=== PATIENT | female | born 1990 | race Caucasian/White ===

== ENCOUNTER 2016-12-25 11:20 | Emergency (ER) | payer OTHER ==
[~2016-12-25] VITALS: Ht 165.1 cm; Wt 118.2 kg
[~2016-12-25 11:20] MED LIST: BENT20TA PO; BUSP10TA PO; CYCL1TAB29 PO; NAPR500T PO; TRIL150T PO; VENL37.5 PO
[2016-12-25 11:21] VITALS: BP 131/87; PULSE 103; RESP 15; TEMP 98.2; O2SAT 98
--- NOTE | 2016-12-25 11:55 | PD ---
HPI Chief Complaint: Injury Time Seen by Provider: 11:55 Travel History International Travel<30 days: No Contact w/Intl Traveler<30days: No Traveled to known affect area: No History of Present Illness HPI 36-year-old left-hand dominant female with history of hypertension and chronic back pain presents to the ED via EMS for evaluation of 6/10 right hand pain and 6/10 right knee pain, [facility] The patient states that she was walking, hit a puddle of water and fell onto her hands and knees. She has not been ambulatory since the accident. On presentation she complains of numbness and pain in the fifth digit of the right hand, as well as the inability to straighten the fifth finger. She also complains of pain in the right knee, worse with certain movements. She denies previous trauma or injury to either the hand over the knee. Treat with ice by the paramedics on scene. PFSH Past Medical History Hx Anticoagulant Therapy: No Depression: Yes Cardiovascular Problems: Yes (HTN; CHEST PAIN AT TIMES) Chemotherapy: No Cerebrovascular Accident: No Diabetes: No Diminished Hearing: No Hypertension: Yes Musculoskeletal: Yes (CHRONIC BACK PAIN) Respiratory: No Immunizations Current: No ?: Not Tubal Ligation: Yes Past Surgical History Section: Yes Hysterectomy: No Tonsillectomy: Yes (ADNOIDS) Social History Alcohol Use: No Tobacco Use: No Substance Use: No Allergies-Medications (Allergen,Severity, Reaction): Coded Allergies: Abilify (Verified Allergy, Severe, CHEST PAIN, 10/16/16) Pertussis Vaccine (Verified Allergy, Unknown, CHILD, 10/16/16) Uncoded Allergies: WHOOPING COUGH VACCINE (Allergy, Severe, UNK, 08/25/15) Reported Meds & Prescriptions Reported Meds & Active Scripts Active Naproxen 500 Mg Tab 500 Mg PO BID Flexeril (Cyclobenzaprine HCl) 10 Mg Tab 10 Mg PO TID PRN Naproxen 500 Mg Tab 500 Mg PO BID PRN Bentyl (Dicyclomine HCl) 20 Mg Tab 20 Mg PO TID Reported Buspirone (Buspirone HCl) 10 Mg Tab 10 Mg PO BID Trileptal (Oxcarbazepine) 150 Mg Tab 150 Mg PO DAILY Effexor (Venlafaxine HCl) 37.5 Mg Tab 37.5 Mg PO Q12H Review of Systems Except as stated in HPI: all other systems reviewed are Neg Physical Exam Narrative GENERAL: Well-nourished, well-developed obese white female in no acute distress. SKIN: Warm and dry. HEAD: Normocephalic. EYES: No scleral icterus. No injection or drainage. NECK: Supple, trachea midline. No JVD or lymphadenopathy. CARDIOVASCULAR: Regular rate and rhythm without murmurs, gallops, or rubs. 2+ DP and radial pulses bilaterally. RESPIRATORY: Breath sounds clear and equal bilaterally. No accessory muscle use. GASTROINTESTINAL: Abdomen soft, non-tender, nondistended. Active bowel sounds. MUSCULOSKELETAL: No cyanosis, or edema. Right upper extremity: No tenderness to palpation of the forearm or wrist. No snuffbox tenderness. Tender to palpation of the MP joint of the fifth digit. Patient is able to weakly flex and extend the finger. Weak finger to thumb opposition of digits 2 through 5. Sensation intact to light touch distally. Cap refill less than 2 seconds. Right lower extremity: Tender to palpation of the patella. No patellar balloting. No tenderness to palpation of the joint lines. Patient is able to flex and extend the knee. Varus valgus stress testing negative. Anterior posterior stress testing negative. Sensation intact to light touch distally. BACK: Nontender without obvious deformity. No CVA tenderness. Data Data Last Documented VS Vital Signs Date Time Temp Pulse Resp B/P Pulse Ox O2 Delivery O2 Flow Rate FiO2 12/25/16 11:21 98.2 103 15 131/87 98 Orders Hand, Complete ([id number]) (12/25/16 12:00) Knee, Complete (4vws) (12/25/16 12:00) Ice/Cold Pack (12/25/16 12:00) Ibuprofen (Motrin) (12/25/16 12:15) Splint Or Brace Apply/Monitor (12/25/16 13:30) MDM Medical Decision Making Medical Screen Exam Complete: Yes Emergency Medical Condition: Yes Differential Diagnosis Fracture versus dislocation versus musculoskeletal pain versus contusion versus other Narrative Course 36-year-old [id number] female with PMH of HTN, chronic back pain presents to the ED via EMS for evaluation of 6 out of 10 right hand pain and 6 out of 10 right knee pain. Onset after falling onto her hands and knees in a puddle of water at [facility]. No ambulation since the accident. Complains of numbness, limited AROM and pain in the fifth digit of the right hand. Complains of pain in the right knee, worse with certain movements. Denies previous trauma or injury to either area. Vitals reviewed. Physical exam reveals an obese white female in no acute distress. Tender to palpation over the fifth metacarpal of the right hand. Patient is able to weakly flex and extend the fingers. Sensation intact to light touch distally. Cap refill less than 2 seconds. Right knee patellar tenderness to palpation. No patellar balloting. No limitations to range of motion. Negative varus/valgus and anterior/posterior stress testing. The patient intact to light touch distally. Ice packs were applied, 800 milligram ibuprofen administered. X-ray of the knee negative for fracture/dislocation per radiology read. X-ray of the hand reveals deformity of the fifth metacarpal that could be chronic per radiology read. Again, patient adamantly denies previous injury to the area. Review of the record reveals no previous hand x-rays for comparison. Ulnar gutter splint was applied by the clinical orthoptist. The patient was provided with pain medications, instructed to follow-up with Dr. Arias, on-call hand surgeon. The patient was observed to walk with a normal gait on discharge. She indicated understanding of the discharge instructions, is amenable to the plan of care. She is stable and discharged home. Diagnosis Primary Impression: Closed fracture of fifth metacarpal bone of right hand Qualified Code: S62.306A - Closed fracture of fifth metacarpal bone of right hand, unspecified fracture morphology, initial encounter Referrals: Fior Arias MD Patient Instructions: General Instructions, Hand Fracture (ED) Additional Instructions: Keep the splint on until seen by the hand surgeon. Keep the arm elevated to reduce pain and swelling. Naproxen as prescribed, as needed for pain. Ice applied for 15 minutes 2 or 3 times a day can also help to reduce pain and swelling. Follow-up with Dr. Arias, hand surgery, this week. Return to the ED for any urgent or emergent medical condition. Med/Other Pt SpecificInfo: Prescription(s) given Scripts Naproxen 500 Mg [id number] Mg PO BID #20 TAB Ref 0 Prov:Jazmyne Ramirez MD 12/25/16 Disposition: 01 DISCHARGE HOME Condition: Stable Karen Brunner Dec 25, 2016 11:55
[2016-12-25] MEDS ORDERED: IBUPROFEN 800 MG TAB PO ONE (12:15)
--- NOTE | 2016-12-25 13:07 | RADRPT ---
EXAM DATE/TIME: 12/25/2016 12:34 [facility] COMPARISON: No previous studies available for comparison. INDICATIONS : Right knee pain. MEDICAL HISTORY : None. SURGICAL HISTORY : None. ENCOUNTER: Initial ACUITY: 1 day PAIN SCORE: 6/10 LOCATION: Right knee FINDINGS: Four view examination of the right knee demonstrates no evidence of fracture or dislocation. Bony mi neralization is normal. The articular surfaces are intact. The suprapatellar soft tissues have a no rmal configuration. CONCLUSION: Negative for fracture or dislocation. Followup in 7-10 days is suggested if symptoms persist. Mendoza Tapia MD FACR on December 25, 2016 at 13:06 Board Certified Radiologist. This report was verified electronically.
--- NOTE | 2016-12-25 13:27 | RADRPT ---
EXAM DATE/TIME: 12/25/2016 12:30 [facility] COMPARISON: No previous studies available for comparison. INDICATIONS : Patient fell and complains of right 5th digit pain. MEDICAL HISTORY : None. SURGICAL HISTORY : None. ENCOUNTER: Initial ACUITY: 1 day PAIN SCORE: 6/10 LOCATION: Right medial Hand fifth digit FINDINGS: There is soft tissue swelling with deformity of the 5th metacarpal. This appears to be a chronic def ormity. Correlation is suggested. No other fractures are appreciated. CONCLUSION: Deformity of the 5th metacarpal that could be chronic. Mendoza Tapia MD FACR on December 25, 2016 at 13:04 Board Certified Radiologist. This report was verified electronically.
[2016-12-25] MEDS ORDERED: NAPR500T PO (13:56)
== END 2016-12-25 14:20 | disposition home or self-care (01) ==
LOC: NETRI 11:20
DX: S62.306A Unspecified fracture of fifth metacarpal bone, right hand, initial encounter for closed fracture (principal); F32.9 Major depressive disorder, single episode, unspecified; I10 Essential (primary) hypertension; W18.31XA Fall on same level due to stepping on an object, initial encounter; Y93.01 Activity, walking, marching and hiking; Y92.512 Supermarket, store or market as the place of occurrence of the external cause; Y99.9 Unspecified external cause status
CPT/HCPCS: 29125; 73130; 73564

== ENCOUNTER 2017-02-16 05:30 | Emergency (ER) | payer SELFPAY ==
[~2017-02-16] VITALS: Ht 165.1 cm; Wt 120.0 kg
[2017-02-16 05:36] VITALS: BP 99/76; PULSE 115; RESP 18; TEMP 100.2; O2SAT 97
--- NOTE | 2017-02-16 06:28 | PD ---
HPI Chief Complaint: Cold / Flu Symptoms Time Seen by Provider: 06:08 Travel History International Travel<30 days: No Contact w/Intl Traveler<30days: No Traveled to known affect area: No History of Present Illness HPI The patient is a 26-year-old female that complains of generalized myalgias, nausea, vomiting, sore throat with slight left intermittent ear pain for 1 day. She is unable to keep fluids down. She denies any diarrhea. She has had a low-grade fever. She states her boyfriend has the same symptoms. She has a tubal ligation and cannot be . PFSH Past Medical History Hx Anticoagulant Therapy: No Anxiety: Yes Depression: Yes Cardiovascular Problems: Yes (HTN; CHEST PAIN AT TIMES) Chemotherapy: No Cerebrovascular Accident: No Diabetes: No Diminished Hearing: No Hypertension: Yes Musculoskeletal: Yes (CHRONIC BACK PAIN) Psychiatric: Yes (BORDERLINE PERSONALITY DISORDER) Respiratory: No Immunizations Current: No Tetanus Vaccination: Unknown Influenza Vaccination: No ?: Unknown LMP: 01/20/17 Tubal Ligation: Yes Past Surgical History Section: Yes Hysterectomy: No Tonsillectomy: Yes (ADNOIDS) Social History Alcohol Use: No Tobacco Use: No Substance Use: Yes (MARIJUANA) Allergies-Medications (Allergen,Severity, Reaction): Coded Allergies: Abilify (Verified Allergy, Severe, CHEST PAIN, 02/16/17) Pertussis Vaccine (Verified Allergy, Unknown, CHILD, 02/16/17) Uncoded Allergies: WHOOPING COUGH VACCINE (Allergy, Severe, UNK, 08/25/15) Reported Meds & Prescriptions Reported Meds & Active Scripts Active Review of Systems Except as stated in HPI: all other systems reviewed are Neg Physical Exam Narrative GENERAL: The patient is alert, oriented 3 in moderate apparent distress with her nausea and abdominal discomfort. Her vital signs show temperature 100.2 with heart rate of 115 but are otherwise normal. SKIN: Focused skin assessment warm/dry. No skin rash is seen. HEAD: Atraumatic. Normocephalic. EYES: Pupils equal and round. No scleral icterus. No injection or drainage. ENT: No nasal bleeding or discharge. Mucous membranes pink and moist. The tympanic membranes are clear. The throat is slightly red without exudate or abscess. NECK: Trachea midline. No JVD. There is no meningismus present. CARDIOVASCULAR: Regular rate and rhythm. No murmur appreciated. RESPIRATORY: No accessory muscle use. Clear to auscultation. Breath sounds equal bilaterally. GASTROINTESTINAL: Abdomen soft, with minimal discomfort in the periumbilical area, nondistended. Hepatic and splenic margins not palpable. No guarding or rebound is present. MUSCULOSKELETAL: No obvious deformities. No clubbing. No cyanosis. No edema. NEUROLOGICAL: Awake and alert. No obvious cranial nerve deficits. Motor grossly within normal limits. Normal speech. PSYCHIATRIC: Appropriate mood and affect; insight and judgment normal. Data Data Last Documented VS Vital Signs Date Time Temp Pulse Resp B/P Pulse Ox O2 Delivery O2 Flow Rate FiO2 02/16/17 07:01 95 Room Air 02/16/17 05:53 20 02/16/17 05:36 100.2 115 99/76 Orders Group A Rapid Strep Screen (02/16/17 06:17) Influenzae A/B Antigen (02/16/17 06:17) Complete Blood Count With Diff (02/16/17 06:18) Comprehensive Metabolic Panel (02/16/17 06:18) Lipase (02/16/17 06:18) Urinalysis - C+S If Indicated (02/16/17 06:18) Iv Access Insert/Monitor (02/16/17 06:18) Ecg Monitoring (02/16/17 06:18) Oximetry (02/16/17 06:18) Ondansetron Inj (Zofran Inj) (02/16/17 06:30) Sodium Chloride 0.9% Flush (Ns Flush) (02/16/17 06:30) Sodium Chlor 0.9% 1000 Ml Inj (Ns 1000 M (02/16/17 06:30) Ondansetron Inj (Zofran Inj) (02/16/17 06:30) Ketorolac Inj (Toradol Inj) (02/16/17 07:15) Acetaminophen (Tylenol) (02/16/17 07:15) Labs Laboratory Tests Test 02/16/17 06:50 White Blood Count 12.5 TH/MM3 Red Blood Count 4.61 MIL/MM3 Hemoglobin 11.6 GM/DL Hematocrit 35.8 % Mean Corpuscular Volume 77.8 FL Mean Corpuscular Hemoglobin 25.1 PG Mean Corpuscular Hemoglobin 32.3 % Concent Red Cell Distribution Width 14.8 % Platelet Count 217 TH/MM3 Mean Platelet Volume 9.2 FL Neutrophils (%) (Auto) 80.4 % Lymphocytes (%) (Auto) 10.0 % Monocytes (%) (Auto) 5.8 % Eosinophils (%) (Auto) 0.3 % Basophils (%) (Auto) 3.5 % Neutrophils # (Auto) 10.2 TH/MM3 Lymphocytes # (Auto) 1.2 TH/MM3 Monocytes # (Auto) 0.7 TH/MM3 Eosinophils # (Auto) 0.0 TH/MM3 Basophils # (Auto) 0.4 TH/MM3 CBC Comment DIFF FINAL Differential Comment MDM Medical Decision Making Medical Screen Exam Complete: Yes Emergency Medical Condition: Yes Medical Record Reviewed: Yes Differential Diagnosis Flu syndrome, nonspecific viral syndrome, colitis, gastroenteritis, strep throat , dehydration, electrolyte disorder Narrative Course It is now 0709 and the patient is transferred to Dr. Carbajal. Mushtaq Knight MD Feb 16, 2017 06:28
[2017-02-16] MEDS ORDERED: ONDANSETRON HCL 4 MG/2 ML VIAL IV ONE (06:30)
[2017-02-16] MEDS ORDERED: SODIUM CHLORIDE 0.9% FLUSH 10 ML FLUSH IV FLUSH PRN (06:30)
[2017-02-16] MEDS ORDERED: ONDANSETRON HCL 4 MG/2 ML VIAL IVP ONE (06:30)
[2017-02-16] MEDS: SODIUM CHLOR 0.9% 1000 ML INJ 1,000 ML IV SCH ×2 (07:00→07:53)
[2017-02-16 07:01] VITALS: O2SAT 95
[2017-02-16 07:01] LABS: AUTOMATED NEUTROPHIL # 10.2 TH/MM3 (1.8-7.7); BASOPHIL # 0.4 TH/MM3 (0-0.2); BASOPHIL % 3.5 % (0.0-2.0); EOSINOPHIL % 0.3 % (0.0-4.0); HEMATOCRIT 35.8 % (35.0-46.0); LYMPHOCYTE # 1.2 TH/MM3 (1.0-4.8); MEAN CELL VOLUME 77.8 FL (80.0-100.0); MEAN CORPUSCULAR HEMOGLOBIN 25.1 PG (27.0-34.0); MEAN CORPUSCULAR HGB CONC 32.3 % (32.0-36.0); MONO % 5.8 % (0.0-8.0); NEUT % 80.4 % (16.0-70.0); PLATELET COUNT 217 TH/MM3 (150-450); RED BLOOD COUNT 4.61 MIL/MM3 (4.00-5.30); RED CELL DISTRIBUTION WIDTH 14.8 % (11.6-17.2); WHITE BLOOD COUNT 12.5 TH/MM3 (4.0-11.0)
[2017-02-16 07:02] LABS: HEMO FLAGS DIFF FINAL
[2017-02-16 07:07] VITALS: BP 113/79; PULSE 105; RESP 20; TEMP 99.7
[2017-02-16 07:08] LABS: CHLORIDE 105 MEQ/L (98-107); SODIUM (NA) 139 MEQ/L (136-145)
[2017-02-16 07:11] LABS: POTASSIUM 4.6 MEQ/L (3.5-5.1)
[2017-02-16 07:12] LABS: ANION GAP 8 MEQ/L (5-15); BICARBONATE 26.1 MEQ/L (21.0-32.0); BLOOD UREA NITROGEN 16 MG/DL (7-18)
[2017-02-16 07:15] LABS: ALT (GPT) 35 U/L (10-53); AST (GOT) 39 U/L (15-37); GLOMERULAR FILTRATION RATE 74 ML/MIN (>89)
[2017-02-16] MEDS ORDERED: ACETAMINOPHEN 500 MG CPLT PO ONE (07:15)
[2017-02-16] MEDS ORDERED: KETOROLAC TROMETHAMINE 60 MG/2 ML (IM) VIAL IVP ONE (07:15)
[2017-02-16 07:17] LABS: TOTAL BILIRUBIN ADULT 0.4 MG/DL (0.2-1.0)
[2017-02-16 07:18] LABS: ALKALINE PHOSPHATASE 66 U/L (45-117)
[2017-02-16] MEDS ORDERED: SODIUM CHLOR 0.9% 1000 ML INJ 1,000 ML IV ONE (08:15)
[2017-02-16 08:17] VITALS: BP 103/68; PULSE 90; RESP 18; O2SAT 99
[2017-02-16 08:37] VITALS: BP 102/57; PULSE 97; RESP 18; TEMP 99.2; O2SAT 98
[2017-02-16 08:40] LABS: BLOOD, URINE NEG (NEG); GLUCOSE,URINE NEG (NEG); KETONE, URINE NEG (NEG); NITRITE,URINE NEG (NEG); PH, URINE 5.5 (5.0-8.5)
[2017-02-16 09:05] LABS: METHOD OF COLLECTION CLEAN CATCH; URINE COLOR YELLOW (YELLW/STRAW)
[2017-02-16 09:06] LABS: BACTERIA, URINE OCC /hpf; COMMENT (UR) CULT NOT INDICATED; CULTURE IF INDICATED CULT NOT INDICATED; SQUAMOUS EPITHELIAL CELL URINE > 8 /hpf (0-5); WBC, URINE 0-2 /hpf (0-5)
[2017-02-16] MEDS ORDERED: ZOFR4TAB3 SL (09:14)
--- NOTE | 2017-02-16 09:14 | PD ---
Physical Exam Narrative GENERAL: Well-nourished, well-developed patient. SKIN: Warm and dry. HEAD: Normocephalic and atraumatic. EYES: No injection or drainage. ENT: No nasal drainage noted. NECK: Supple, trachea midline. CARDIOVASCULAR: Regular rate and rhythm RESPIRATORY: no increased effort. No accessory muscle use. NEUROLOGICAL: Awake and alert. Motor and sensory grossly within normal limits. Normal speech. Data Data Last Documented VS Vital Signs Date Time Temp Pulse Resp B/P Pulse Ox O2 Delivery O2 Flow Rate FiO2 02/16/17 08:37 99.2 97 18 102/57 98 Room Air Orders Group A Rapid Strep Screen (02/16/17 06:17) Influenzae A/B Antigen (02/16/17 06:17) Complete Blood Count With Diff (02/16/17 06:18) Comprehensive Metabolic Panel (02/16/17 06:18) Lipase (02/16/17 06:18) Urinalysis - C+S If Indicated (02/16/17 06:18) Iv Access Insert/Monitor (02/16/17 06:18) Ecg Monitoring (02/16/17 06:18) Oximetry (02/16/17 06:18) Ondansetron Inj (Zofran Inj) (02/16/17 06:30) Sodium Chloride 0.9% Flush (Ns Flush) (02/16/17 06:30) Sodium Chlor 0.9% 1000 Ml Inj (Ns 1000 M (02/16/17 06:30) Ondansetron Inj (Zofran Inj) (02/16/17 06:30) Ketorolac Inj (Toradol Inj) (02/16/17 07:15) Acetaminophen (Tylenol) (02/16/17 07:15) Strep Culture (Group A) (02/16/17 06:30) Sodium Chlor 0.9% 1000 Ml Inj (Ns 1000 M (02/16/17 08:15) Labs Laboratory Tests Test 02/16/17 02/16/17 06:50 08:30 White Blood Count 12.5 TH/MM3 Red Blood Count 4.61 MIL/MM3 Hemoglobin 11.6 GM/DL Hematocrit 35.8 % Mean Corpuscular Volume 77.8 FL Mean Corpuscular Hemoglobin 25.1 PG Mean Corpuscular Hemoglobin 32.3 % Concent Red Cell Distribution Width 14.8 % Platelet Count 217 TH/MM3 Mean Platelet Volume 9.2 FL Neutrophils (%) (Auto) 80.4 % Lymphocytes (%) (Auto) 10.0 % Monocytes (%) (Auto) 5.8 % Eosinophils (%) (Auto) 0.3 % Basophils (%) (Auto) 3.5 % Neutrophils # (Auto) 10.2 TH/MM3 Lymphocytes # (Auto) 1.2 TH/MM3 Monocytes # (Auto) 0.7 TH/MM3 Eosinophils # (Auto) 0.0 TH/MM3 Basophils # (Auto) 0.4 TH/MM3 CBC Comment DIFF FINAL Differential Comment Sodium Level 139 MEQ/L Potassium Level 4.6 MEQ/L Chloride Level 105 MEQ/L Carbon Dioxide Level 26.1 MEQ/L Anion Gap 8 MEQ/L Blood Urea Nitrogen 16 MG/DL Creatinine 0.91 MG/DL Estimat Glomerular Filtration 74 ML/MIN Rate Random Glucose 122 MG/DL Calcium Level 8.5 MG/DL Total Bilirubin 0.4 MG/DL Aspartate Amino Transf 39 U/L (AST/SGOT) Alanine Aminotransferase 35 U/L (ALT/SGPT) Alkaline Phosphatase 66 U/L Total Protein 7.8 GM/DL Albumin 3.5 GM/DL Lipase 117 U/L Urine Collection Type CLEAN CATCH Urine Color YELLOW Urine Turbidity CLEAR Urine pH 5.5 Urine Specific [place] 1.027 Urine Protein NEG mg/dL Urine Glucose (UA) NEG mg/dL Urine Ketones NEG mg/dL Urine Occult Blood NEG Urine Nitrite NEG Urine Bilirubin NEG Urine Leukocyte Esterase NEG Urine WBC 0-2 /hpf Urine Squamous Epithelial > 8 /hpf Cells Urine Bacteria OCC /hpf Microscopic Urinalysis Comment CULT NOT INDICATED Urine Collection Time 08:30 [facility] Supervised Visit with DELISA: No Interpretation(s) CBC & BMP Diagram 02/16/17 06:50 Narrative Course Signed over to me to follow workup and if normal to discharge. ED workup without emergent process. Patient without emesis here.Patient denies any new complaints and states that they are feeling better. Patient happy with care, all questions answered. Patient knows that follow up is incumbent on them and to return to the emergency room immediately if new or worsening symptoms develop. Patient given strict return precautions, vitals reviewed and are normal , agrees to further workup as an outpatient with supportive care. Diagnosis Primary Impression: Upper respiratory infection Qualified Code: J06.9 - Upper respiratory tract infection, unspecified type Additional Impression: Vomiting Qualified Code: R11.10 - Non-intractable vomiting, presence of nausea not specified, unspecified vomiting type Patient Instructions: General Instructions Additional Instruction: set up a primary, tylenol and motrin as needed for pain and fever, zofran as needed for nausea and vomiting, keep hydrated, return as needed Med/Other Pt SpecificInfo: Prescription(s) given Scripts Ondansetron Odt (Zofran Odt)4 Mg Tab4 Mg SL Q6HR PRN (Nausea/Vomiting) #10 TAB Prov:Brooke Soni MD 02/16/17 Disposition: 01 DISCHARGE HOME Condition: Stable Brooke Soni MD Feb 16, 2017 09:14
== END 2017-02-16 09:33 | disposition home or self-care (01) ==
LOC: PHED 05:30
DX: J06.9 Acute upper respiratory infection, unspecified (principal); I10 Essential (primary) hypertension; R11.2 Nausea with vomiting, unspecified
CPT/HCPCS: 80053; 81001; 83690; 85025; 87081; 87804; 87880; 96361; 96374; 96375; 99284; J1885; J2405; J7030

== ENCOUNTER 2017-02-19 00:01 | Inpatient (IN) | payer SELFPAY ==
[~2017-02-19] VITALS: Ht 165.1 cm; Wt 117.1 kg
[2017-02-19] VITALS (12 sets, daily range): BP systolic 110–143; BP diastolic 65–96; PULSE 84–118; RESP 16–20; TEMP 98.3–102; O2SAT 96–100
[~2017-02-19 00:01] MED LIST changes: -BENT20TA PO; -BUSP10TA PO; -CYCL1TAB29 PO; -NAPR500T PO; -TRIL150T PO; -VENL37.5 PO; +ZOFR4TAB3 SL
[2017-02-19 04:15] LABS: BASOPHIL % 0.1 % (0.0-2.0); EOSINOPHIL % 0.2 % (0.0-4.0); HEMATOCRIT 34.7 % (35.0-46.0); LYMPH % 12.1 % (9.0-44.0); MEAN CELL VOLUME 77.5 FL (80.0-100.0); MEAN CORPUSCULAR HEMOGLOBIN 24.1 PG (27.0-34.0); MEAN CORPUSCULAR HGB CONC 31.1 % (32.0-36.0); MONO % 5.2 % (0.0-8.0); NEUT % 82.4 % (16.0-70.0); PLATELET COUNT 166 TH/MM3 (150-450); RED BLOOD COUNT 4.47 MIL/MM3 (4.00-5.30); RED CELL DISTRIBUTION WIDTH 14.9 % (11.6-17.2); WHITE BLOOD COUNT 8.4 TH/MM3 (4.0-11.0)
[2017-02-19 04:23] LABS: HEMO FLAGS AUTO DIFF
[2017-02-19 04:44] LABS: ALKALINE PHOSPHATASE 92 U/L (45-117); ALT (GPT) 44 U/L (10-53); ANION GAP 12 MEQ/L (5-15); AST (GOT) 26 U/L (15-37); BLOOD UREA NITROGEN 11 MG/DL (7-18); CHLORIDE 107 MEQ/L (98-107); GLOMERULAR FILTRATION RATE 138 ML/MIN (>89); POTASSIUM 3.4 MEQ/L (3.5-5.1); SODIUM (NA) 141 MEQ/L (136-145); TOTAL BILIRUBIN ADULT 0.2 MG/DL (0.2-1.0)
[2017-02-19] MEDS ORDERED: ONDANSETRON HCL 4 MG/2 ML VIAL IV ONE ×2 (04:45→05:00)
[2017-02-19] MEDS: SODIUM CHLOR 0.9% 1000 ML INJ 1,000 ML IV SCH ×4 (04:45→15:11)
[2017-02-19 04:56] LABS: BANDS 8 % (0-6); NEUTROPHIL # MANUAL DIFF 7.1 TH/MM3 (1.8-7.7); PLATELET ESTIMATE SMEAR NORMAL (NORMAL); PLATELET MORPHOLOGY NORMAL (NORMAL); POLYS (SEG NEUTROPHILS) 76 % (16-70); SCAN/DIFF FINAL DIFF MANUAL; WBC DIFF SAMPLE 100
--- NOTE | 2017-02-19 04:59 | PD ---
HPI Chief Complaint: Cold / Flu Symptoms Time Seen by Provider: 04:40 Travel History International Travel<30 days: No Contact w/Intl Traveler<30days: No Traveled to known affect area: No History of Present Illness HPI The patient is a 26-year-old female that complains of myalgias, nausea, vomiting , sore throat and left intermittent ear pain since the of this month. She came in on the and was given nausea medications and fluids and did not vomit here and was ultimately discharged by Dr. Carbajal. I saw the patient initially. She states that she went home and could not keep her Zofran down. She continued to vomit and comes in feeling dehydrated and feels that she may need to be admitted. The patient has no vertigo now but did have vertigo at home. PFSH Past Medical History Hx Anticoagulant Therapy: No Anxiety: Yes Depression: Yes Cardiovascular Problems: Yes (HTN; CHEST PAIN AT TIMES) Chemotherapy: No Cerebrovascular Accident: No Diabetes: No Diminished Hearing: No Hypertension: Yes Musculoskeletal: Yes (CHRONIC BACK PAIN) Psychiatric: Yes (BORDERLINE PERSONALITY DISORDER) Respiratory: No Immunizations Current: No Tetanus Vaccination: Unknown Influenza Vaccination: No ?: Not LMP: 3 WEEKS AGO Tubal Ligation: Yes Past Surgical History Section: Yes Hysterectomy: No Tonsillectomy: Yes (ADNOIDS) Social History Alcohol Use: No Tobacco Use: No Substance Use: Yes (MARIJUANA) Allergies-Medications (Allergen,Severity, Reaction): Coded Allergies: Abilify (Verified Allergy, Severe, CHEST PAIN, 02/19/17) Pertussis Vaccine (Verified Allergy, Unknown, CHILD, 02/19/17) Uncoded Allergies: WHOOPING COUGH VACCINE (Allergy, Severe, UNK, 08/25/15) Reported Meds & Prescriptions Reported Meds & Active Scripts Active No Active Prescriptions or Reported Medications Review of Systems Except as stated in HPI: all other systems reviewed are Neg Physical Exam Narrative GENERAL: The patient is alert, anxious, oriented 3, mild to moderately dehydrated appearing, and slight apparent distress with her nausea/vomiting. Her vital signs show temperature 102.0 with heart rate of 118 but otherwise normal. SKIN: Focused skin assessment warm/dry. No skin rash is seen. The tympanic membranes are clear. HEAD: Atraumatic. Normocephalic. EYES: Pupils equal and round. No scleral icterus. No injection or drainage. ENT: No nasal bleeding or discharge. Mucous membranes pink and moist. Both tympanic membranes appear dull and minimally distorted. NECK: Trachea midline. No JVD. There is no meningismus present. CARDIOVASCULAR: Regular rate and rhythm. No murmur appreciated. RESPIRATORY: No accessory muscle use. Clear to auscultation. Breath sounds equal bilaterally. GASTROINTESTINAL: Abdomen soft, non-tender, nondistended. Hepatic and splenic margins not palpable. MUSCULOSKELETAL: No obvious deformities. No clubbing. No cyanosis. No edema. NEUROLOGICAL: Awake and alert. No obvious cranial nerve deficits. Motor grossly within normal limits. Normal speech. PSYCHIATRIC: The patient appears anxious; insight and judgment normal. Data Data Last Documented VS Vital Signs Date Time Temp Pulse Resp B/P Pulse Ox O2 Delivery O2 Flow Rate FiO2 02/19/17 04:48 101 18 120/74 98 Room Air 02/19/17 03:45 100.0 Orders Complete Blood Count With Diff (02/19/17 03:17) Comprehensive Metabolic Panel (02/19/17 03:17) Urinalysis - C+S If Indicated (02/19/17 03:17) Iv Access Insert/Monitor (02/19/17 03:17) Oximetry (02/19/17 03:17) Lipase (02/19/17 03:17) Blood Culture (02/19/17 03:20) Ed Urine Pregnancytest Poc (02/19/17 03:20) Lactic Acid (02/19/17 03:27) Ondansetron Inj (Zofran Inj) (02/19/17 04:45) Sodium Chlor 0.9% 1000 Ml Inj (Ns 1000 M (02/19/17 04:45) Ondansetron Inj (Zofran Inj) (02/19/17 05:00) Ketorolac Inj (Toradol Inj) (02/19/17 05:15) Admit To Inpatient (02/19/17 ) Vital Signs (Adult) Q4H (02/19/17 05:11) Activity Oob Ad Lise (02/19/17 05:11) Sodium Chloride 0.9% Flush (Ns Flush) (02/19/17 05:15) Sodium Chloride 0.9% Flush (Ns Flush) (02/19/17 09:00) Ondansetron Inj (Zofran Inj) (02/19/17 05:15) Prochlorperazine Supp (Compazine Supp) (02/19/17 05:15) Bisacodyl Supp (Dulcolax Supp) (02/19/17 05:15) Magnesium Hydroxide Liq (Milk Of Magnesi (02/19/17 05:15) Sennosides (Senokot) (02/19/17 05:15) Basic Metabolic Panel (Bmp) (02/20/17 06:00) Complete Blood Count With Diff (02/20/17 06:00) Pt Request For Service (02/19/17 05:11) Ot Request For Service (02/19/17 05:11) Case Management Consult (02/19/17 05:11) Enoxaparin Inj (Lovenox Inj) (02/19/17 05:15) Scd Bilateral/Knee High JOSE A.BID (02/19/17 05:11) Naloxone Inj (Narcan Inj) (02/19/17 05:15) Inpatient Certification (02/19/17 ) Ceftriaxone Inj (Rocephin Inj) (02/19/17 05:15) Diet Regular Basic (02/19/17 Breakfast) Sodium Chlor 0.9% 1000 Ml Inj (Ns 1000 M (02/19/17 05:11) Beta Hcg (Quant/Titer) (02/19/17 05:17) Labs Laboratory Tests Test 02/19/17 03:40 White Blood Count 8.4 TH/MM3 Red Blood Count 4.47 MIL/MM3 Hemoglobin 10.8 GM/DL Hematocrit 34.7 % Mean Corpuscular Volume 77.5 FL Mean Corpuscular Hemoglobin 24.1 PG Mean Corpuscular Hemoglobin 31.1 % Concent Red Cell Distribution Width 14.9 % Platelet Count 166 TH/MM3 Mean Platelet Volume 9.9 FL Neutrophils (%) (Auto) 82.4 % Lymphocytes (%) (Auto) 12.1 % Monocytes (%) (Auto) 5.2 % Eosinophils (%) (Auto) 0.2 % Basophils (%) (Auto) 0.1 % Neutrophils # (Auto) 7.0 TH/MM3 Lymphocytes # (Auto) 1.0 TH/MM3 Monocytes # (Auto) 0.4 TH/MM3 Eosinophils # (Auto) 0.0 TH/MM3 Basophils # (Auto) 0.0 TH/MM3 CBC Comment AUTO DIFF Differential Total Cells 100 Counted Neutrophils % (Manual) 76 % Band Neutrophils % 8 % Lymphocytes % 12 % Monocytes % 4 % Neutrophils # (Manual) 7.1 TH/MM3 Differential Comment FINAL DIFF MANUAL Platelet Estimate NORMAL Platelet Morphology Comment NORMAL Sodium Level 141 MEQ/L Potassium Level 3.4 MEQ/L Chloride Level 107 MEQ/L Carbon Dioxide Level 22.0 MEQ/L Anion Gap 12 MEQ/L Blood Urea Nitrogen 11 MG/DL Creatinine 0.53 MG/DL Estimat Glomerular Filtration 138 ML/MIN Rate Random Glucose 105 MG/DL Lactic Acid Level 0.4 mmol/L Calcium Level 8.2 MG/DL Total Bilirubin 0.2 MG/DL Aspartate Amino Transf 26 U/L (AST/SGOT) Alanine Aminotransferase 44 U/L (ALT/SGPT) Alkaline Phosphatase 92 U/L Total Protein 7.0 GM/DL Albumin 3.1 GM/DL Lipase 75 U/L [facility] Medical Decision Making Medical Screen Exam Complete: Yes Emergency Medical Condition: Yes Medical Record Reviewed: Yes Differential Diagnosis Viral gastroenteritis, flu syndrome, dehydration, electrolyte disorder, hypo-/ hyperglycemia, other metabolic disorder, ear infection, labyrinthitis Narrative Course The patient appears to have viral gastroenteritis that failed at home patient treatment. She did have vertigo at home but has none now. She has bilateral ear pain and likely has a bilateral otitis media. It is possible but unlikely that the ear infection has spread to the inner ear. Plan: The patient will be put on Rocephin, given IV fluids and admitted to Dr. Castro, I discussed the patient with Dr. Castro. Physician Communication Physician Communication I discussed the patient with Dr. Castro, the patient will be admitted to him here at [place]. Diagnosis Primary Impression: Viral gastroenteritis Additional Impressions: Bilateral otitis media Moderate dehydration Admitting Information Admitting Physician Requests: Admit Scripts No Active Prescriptions or Reported Meds Mushtaq Knight MD Feb 19, 2017 04:59
[2017-02-19] MEDS ORDERED: BISACODYL 10 MG SUPP PR PRN (05:15)
[2017-02-19] MEDS ORDERED: MAGNESIUM HYDROXIDE SUSP 30 ML CUP PO PRN (05:15)
[2017-02-19] MEDS ORDERED: NALOXONE HCL 0.4 MG/ML AMP IV PRN (05:15)
[2017-02-19] MEDS ORDERED: PROCHLORPERAZINE 25 MG SUPP PR PRN (05:15)
[2017-02-19] MEDS ORDERED: SENNOSIDES 8.6 MG TAB PO PRN (05:15)
[2017-02-19] MEDS ORDERED: KETOROLAC TROMETHAMINE 60 MG/2 ML (IM) VIAL IVP ONE (05:15)
[2017-02-19] MEDS ORDERED: SODIUM CHLORIDE 0.9% FLUSH 10 ML FLUSH IV FLUSH PRN (05:15)
[2017-02-19] MEDS: cefTRIAXone INJ 2,000 MG in SODIUM CHLORIDE 0.9% INJ 100 ML IV SCH (05:52)
[2017-02-19 06:09] LABS: BETA HCG QUANT LESS THAN 1 MIU/ML (0-5)
[2017-02-19] MEDS: SODIUM CHLORIDE 0.9% FLUSH 10 ML FLUSH IV FLUSH SCH ×2 (09:00→20:48)
[2017-02-19] MEDS: ENOXAPARIN SODIUM 40 MG/0.4 ML SYRINGE SQ SCH (09:00)
[2017-02-19 09:38] LABS: BLOOD, URINE SMALL (NEG); GLUCOSE,URINE NEG (NEG); KETONE, URINE 80 OR GREATER mg/dL (NEG); NITRITE,URINE NEG (NEG)
[2017-02-19 09:45] LABS: METHOD OF COLLECTION CLEAN CATCH; URINE COLOR YELLOW (YELLW/STRAW)
[2017-02-19 09:48] LABS: MUCUS URINE FEW /lpf (OCC)
[2017-02-19 09:52] LABS: BACTERIA, URINE MOD /hpf; RBC, URINE 0-3 /hpf (0-3); WBC, URINE 0-2 /hpf (0-5)
[2017-02-19 09:53] LABS: SQUAMOUS EPITHELIAL CELL URINE 0-5 /hpf (0-5)
[2017-02-19 09:54] LABS: COMMENT (UR) CULTURE INDICATED; CULTURE IF INDICATED CULTURE INDICATED
--- NOTE | 2017-02-19 10:43 | HHI.HP ---
[facility] Service [facility] Primary Care Physician No Primary Care Physician Admission Diagnosis viral gastroenteritis, bilateral otitis media, dehydration Diagnoses: (1) Viral gastroenteritis Diagnosis: Principal (2) Acute serous otitis media of both ears Diagnosis: Principal (3) Marijuana smoker Diagnosis: Principal (4) Bandemia Diagnosis: Principal Chief Complaint: Ongoing nausea, vomitting, sore throat, bilateral ear pain Travel History International Travel<30 Days: No Contact w/Intl Traveler <30 Da: No Traveled to Known Affected Are: No History of Present Illness Mrs. Michael is a 26-year-old female who had previously presented to the Emergency department on 02/16 for initial complaints of nausea, vomiting, sore throat and intermittent left ear pain. She was evaluated, given fluids, encouraged adequate hydration and sent home with Zofran PO as needed. Patient returns to the ED with ongoing nausea and vomiting, sore throat, nonproductive cough and now bilateral ear pain. She does report diffuse body aches and generalized weakness. Patient was unable to tolerate previously prescribed PO Zofran. She has also been unable to tolerate foods and liquids. Patient does report a temperature of 103 a few days ago. Denies any associated diarrhea or recent weight loss. She denies any cough, SOB, chest pain or palpitations. Review of Systems Constitutional: COMPLAINS OF: Fatigue, Fever, DENIES: Diaphoretic episodes, Weight gain, Weight loss, Chills, Dizziness, Change in appetite, Night Sweats Ears, nose, mouth, throat: COMPLAINS OF: Throat pain, Ear Pain, DENIES: Tinnitus, Hearing loss, Vertigo, Nasal discharge, Oral lesions, Hoarseness, Running Nose, Epistaxis, Sinus Pain, Toothache, Odynophagia Respiratory: DENIES: Apneas, Cough, Snoring, Wheezing, Hemoptysis, Sputum production, Shortness of breath Gastrointestinal: COMPLAINS OF: Nausea, Vomiting, Difficulty Swallowing, DENIES: Abdominal pain, Black stools, Bloody stools, Constipation, Diarrhea, Anorexia Genitourinary: DENIES: Abnormal vaginal bleeding, Dysmenorrhea, Dyspareunia, Sexual dysfunction, Urinary frequency, Urinary incontinence, Urgency, Hematuria , Dysuria, Nocturia, Vaginal discharge Musculoskeletal: COMPLAINS OF: Muscle aches, DENIES: Joint pain, Stiffness, Joint Swelling, Back pain, Neck pain Integumentary: DENIES: Abnormal pigmentation, Pruritus, Rash, Nail changes, Breast masses, Breast skin changes, Nipple discharge Hematologic/lymphatic: DENIES: Bruising, Lymphadenopathy Immunologic/allergic: DENIES: Eczema, Urticaria Neurologic: DENIES: Abnormal gait, Headache, Localized weakness, Paresthesias, Seizures, Speech Problems, Tremor, Poor Balance Psychiatric: COMPLAINS OF: Anxiety, Depression Past Family Social History Past Medical History Anxiety Depression Borderline Personality Disorder Tubal Ligation Past Surgical History x 4 Tonsillectomy Reported Medications Reported Meds & Active Scripts Active No Active Prescriptions or Reported Medications Allergies: Coded Allergies: Abilify (Verified Allergy, Severe, CHEST PAIN, 02/19/17) Pertussis Vaccine (Verified Allergy, Unknown, CHILD, 02/19/17) Uncoded Allergies: WHOOPING COUGH VACCINE (Allergy, Severe, UNK, 08/25/15) Family History Family history is significant for maternal diabetes, alcoholism and illicit drug use. Patient also mentioned presence of heart disease on both maternal and paternal sides. Social History Patient lives with her and four children. 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 Denies any alcohol or tobacco use. Admits to occasional Cannibis use, denies any other illicit drug use. Physical Exam Vital Signs Vital Signs Date Time Temp Pulse Resp B/P Pulse Ox O2 Delivery O2 Flow Rate FiO2 02/19/17 08:00 98.3 87 20 138/81 97 02/19/17 07:15 93 16 97 Room Air 02/19/17 07:15 98.5 93 16 118/65 98 Room Air 02/19/17 06:29 96 18 110/70 98 Room Air 02/19/17 06:29 96 18 97 Room Air 02/19/17 05:43 18 02/19/17 04:48 101 18 120/74 98 Room Air 02/19/17 04:48 101 18 98 Room Air 02/19/17 04:34 18 97 Room Air 02/19/17 03:45 100.0 99 18 117/78 99 02/19/17 02:45 100.8 109 18 124/65 98 Room Air 02/19/17 02:40 109 18 98 Room Air 02/19/17 02:34 100.8 109 18 124/65 98 02/19/17 00:39 102.0 118 20 128/88 100 Physical Exam GENERAL: This is a well-nourished, well-developed patient, in no apparent distress. SKIN: No rashes, ecchymoses or lesions. Cool and dry. HEAD: Atraumatic. Normocephalic. No temporal or scalp tenderness. EYES: Pupils equal round and reactive. Extraocular motions intact. No scleral icterus. No injection or drainage. ENT: Nose without bleeding, purulent drainage or septal hematoma. Throat without erythema or exudate. Uvula midline. Airway patent. Temporal membranes erythematous without exudate. NECK: Trachea midline. No JVD or lymphadenopathy. Supple, nontender, no meningeal signs. CARDIOVASCULAR: Regular rate and rhythm without murmurs, gallops, or rubs. RESPIRATORY: Clear to auscultation. Breath sounds equal bilaterally. No wheezes , rales, or rhonchi. GASTROINTESTINAL: Abdomen soft, non-tender, nondistended. No hepato-splenomegaly , or palpable masses. No guarding. MUSCULOSKELETAL: Extremities without clubbing, cyanosis, or edema. No joint tenderness, effusion, or edema noted. No calf tenderness. Negative Homans sign bilaterally. NEUROLOGICAL: Awake and alert. Cranial nerves II through XII intact. Motor and sensory grossly within normal limits. Five out of 5 muscle strength in all muscle groups. Normal speech. Laboratory Laboratory Tests Test 02/19/17 02/19/17 03:40 09:27 White Blood Count 8.4 Red Blood Count 4.47 Hemoglobin 10.8 Hematocrit 34.7 Mean Corpuscular Volume 77.5 Mean Corpuscular Hemoglobin 24.1 Mean Corpuscular Hemoglobin 31.1 Concent Red Cell Distribution Width 14.9 Platelet Count 166 Mean Platelet Volume 9.9 Neutrophils (%) (Auto) 82.4 Lymphocytes (%) (Auto) 12.1 Monocytes (%) (Auto) 5.2 Eosinophils (%) (Auto) 0.2 Basophils (%) (Auto) 0.1 Neutrophils # (Auto) 7.0 Lymphocytes # (Auto) 1.0 Monocytes # (Auto) 0.4 Eosinophils # (Auto) 0.0 Basophils # (Auto) 0.0 CBC Comment AUTO DIFF Differential Total Cells 100 Counted Neutrophils % (Manual) 76 Band Neutrophils % 8 Lymphocytes % 12 Monocytes % 4 Neutrophils # (Manual) 7.1 Differential Comment FINAL DIFF MANUAL Platelet Estimate NORMAL Platelet Morphology Comment NORMAL Sodium Level 141 Potassium Level 3.4 Chloride Level 107 Carbon Dioxide Level 22.0 Anion Gap 12 Blood Urea Nitrogen 11 Creatinine 0.53 Estimat Glomerular Filtration 138 Rate Random Glucose 105 Lactic Acid Level 0.4 Calcium Level 8.2 Total Bilirubin 0.2 Aspartate Amino Transf 26 (AST/SGOT) Alanine Aminotransferase 44 (ALT/SGPT) Alkaline Phosphatase 92 Total Protein 7.0 Albumin 3.1 Lipase 75 Human Chorionic Gonadotropin, LESS THAN 1 Quant Urine Collection Type CLEAN CATCH Urine Color YELLOW Urine Turbidity CLEAR Urine pH 6.0 Urine Specific [place] 1.032 Urine Protein 30 Urine Glucose (UA) NEG Urine Ketones 80 OR GREATER Urine Occult Blood SMALL Urine Nitrite NEG Urine Bilirubin NEG Urine Leukocyte Esterase NEG Urine RBC 0-3 Urine WBC 0-2 Urine Squamous Epithelial 0-5 Cells Urine Bacteria MOD Urine Mucus FEW Urine Yeast (Budding) FEW Microscopic Urinalysis Comment CULTURE INDICATED Date/Time Procedure Status Source Growth 02/19/17 09:27 Urine Culture Received Urine Clean Catch Pending 02/19/17 03:40 Aerobic Blood Culture Received Blood Peripheral Pending 02/19/17 03:40 Anaerobic Blood Culture Received Blood Peripheral Pending Result Diagram: 02/19/17 0340 02/19/17 0340 Assessment and Plan Assessment and Plan This is a 26-year-old female with ongoing nausea, vomiting, sore throat and bilateral ear pain with inability to tolerate anything PO for the past 4 days. Intractable nausea and vomiting, Suspected viral gastroenteritis, cyclic vomiting from marijuana use - IV antiemetics PRN - Encourage fluid and food intake as tolerated. - avoid marijuana use Bilateral serous otitis media, - Likely viral in nature, will dc Rocephin previously ordered. Dehydration - Continue IV fluids DVT Prophylaxis - sequential compression devices Written by Santos Knight, acting as scribe for Dr. Vickers on 02/19/17 at 11:26. All or portions of this note were transcribed by scribe Santos Knight. I, Dr. Santos Vickers personally performed the history, physical exam, and medical decision making; and confirmed the accuracy of the information in the transcribed note. Authenticated by Dr. Santos Vickers on 02/19/17 at 13:23. Physician Certification 2 Midnight Certification Type: Admission for Inpatient Services Order for Inpatient Services The services are ordered in accordance with Medicare regulations or non- Medicare payer requirements, as applicable. In the case of services not specified as inpatient-only, they are appropriately provided as inpatient services in accordance with the 2-midnight benchmark. Estimated LOS (days): 2 days is the estimated time the patient will need to remain in the hospital, assuming treatment plan goals are met and no additional complications. Post-Hospital Plan: Not yet determined Santos Knight Feb 19, 2017 10:43 Santos Vickers MD Feb 19, 2017 13:23
[2017-02-19] MEDS: ONDANSETRON HCL 4 MG/2 ML VIAL IVP PRN ×2 (13:01→20:47)
[2017-02-19] MEDS: ACETAMINOPHEN 500 MG CPLT PO PRN ×2 (15:20→22:19)
[2017-02-19] MEDS ORDERED: ALTEPLASE RECOMBINANT 2 MG VIAL INTRACATH ONE (18:45)
[2017-02-20] VITALS: BP 144/80; PULSE 95; RESP 20; TEMP 98.1; O2SAT 99
[2017-02-20] MEDS: ACETAMINOPHEN 500 MG CPLT PO PRN ×2 (03:09→14:47)
[2017-02-20] MEDS: SODIUM CHLOR 0.9% 1000 ML INJ 1,000 ML IV SCH ×3 (03:10→21:55)
[2017-02-20 06:55] LABS: AUTOMATED NEUTROPHIL # 2.6 TH/MM3 (1.8-7.7); BASOPHIL % 0.2 % (0.0-2.0); EOSINOPHIL % 0.2 % (0.0-4.0); HEMATOCRIT 31.9 % (35.0-46.0); LYMPHOCYTE # 1.5 TH/MM3 (1.0-4.8); MEAN CELL VOLUME 77.1 FL (80.0-100.0); MEAN CORPUSCULAR HEMOGLOBIN 23.8 PG (27.0-34.0); MEAN CORPUSCULAR HGB CONC 30.9 % (32.0-36.0); MONO % 6.3 % (0.0-8.0); NEUT % 58.3 % (16.0-70.0); PLATELET COUNT 122 TH/MM3 (150-450); RED BLOOD COUNT 4.14 MIL/MM3 (4.00-5.30); RED CELL DISTRIBUTION WIDTH 14.3 % (11.6-17.2); WHITE BLOOD COUNT 4.4 TH/MM3 (4.0-11.0)
[2017-02-20] MEDS: cefTRIAXone INJ 2,000 MG in SODIUM CHLORIDE 0.9% INJ 100 ML IV SCH (06:56)
[2017-02-20 07:05] LABS: POTASSIUM 3.2 MEQ/L (3.5-5.1)
[2017-02-20 07:08] LABS: BICARBONATE 25.3 MEQ/L (21.0-32.0); MAGNESIUM 2.1 MG/DL (1.5-2.5)
[2017-02-20 07:21] LABS: HEMO FLAGS AUTO DIFF
[2017-02-20 07:35] LABS: SCAN/DIFF AUTO DIFF CONFIRMED
[2017-02-20 08:00] VITALS: BP 146/89; PULSE 96; RESP 22; TEMP 97.5; O2SAT 99
[2017-02-20] MEDS: ENOXAPARIN SODIUM 40 MG/0.4 ML SYRINGE SQ SCH (09:00)
[2017-02-20] MEDS: SODIUM CHLORIDE 0.9% FLUSH 10 ML FLUSH IV FLUSH SCH ×2 (09:00→21:00)
[2017-02-20 12:00] VITALS: BP 139/88; PULSE 94; RESP 21; TEMP 98.5; O2SAT 98
--- NOTE | 2017-02-20 14:17 | HHI.PR ---
Subjective Remarks Patient seen and examined with Dr. Valenzuela. Patient lying in bed, resting comfortably. Attempted to eat breakfast and has been able to keep down full liquids with mild nausea. Denies any further vomiting. No diarrhea. Does complain of continuous clear drainage from nose. Afebrile. Objective Vitals Vital Signs Date Time Temp Pulse Resp B/P Pulse Ox O2 Delivery O2 Flow Rate FiO2 02/20/17 12:00 98.5 94 21 139/88 98 02/20/17 08:00 97.5 96 22 146/89 99 02/20/17 00:00 98.1 95 20 144/80 99 02/19/17 20:00 98.6 84 20 137/74 99 02/19/17 17:46 02/19/17 16:00 99.1 95 20 143/96 96 I/O 02/19/17 02/19/17 02/19/17 02/20/17 02/20/17 02/20/17 07:00 15:00 23:00 07:00 15:00 23:00 Intake Total 2100 ml 360 ml 480 ml 720 ml Output Total 1 ml Balance 2100 ml 359 ml 480 ml 720 ml Intake Oral 360 ml 480 ml 720 ml IV Total 2100 ml Output Urine Total 1 ml # Voids 1 3 # Bowel Movements 6 0 0 Result Diagram: 02/20/1762902/20/17629 Objective Remarks GENERAL: This is a well-nourished, well-developed patient, in no apparent distress. SKIN: No rashes, ecchymoses or lesions. Cool and dry. HEAD: Atraumatic. Normocephalic. No temporal or scalp tenderness. EYES: Pupils equal round and reactive. Extraocular motions intact. No scleral icterus. No injection or drainage. ENT: Nose without bleeding, purulent drainage or septal hematoma. Throat without erythema or exudate. Uvula midline. Airway patent. Temporal membranes erythematous without exudate. NECK: Trachea midline. No JVD or lymphadenopathy. Supple, nontender, no meningeal signs. CARDIOVASCULAR: Regular rate and rhythm without murmurs, gallops, or rubs. RESPIRATORY: Clear to auscultation. Breath sounds equal bilaterally. No wheezes , rales, or rhonchi. GASTROINTESTINAL: Abdomen soft, non-tender, nondistended. No hepato-splenomegaly , or palpable masses. No guarding. MUSCULOSKELETAL: Extremities without clubbing, cyanosis, or edema. No joint tenderness, effusion, or edema noted. No calf tenderness. Negative Homans sign bilaterally. NEUROLOGICAL: Awake and alert. Cranial nerves II through XII intact. Motor and sensory grossly within normal limits. Five out of 5 muscle strength in all muscle groups. Normal speech. Urinary Catheter: No Vascular Central Line Catheter: No A/P Assessment and Plan Intractable nausea and vomiting, suspected viral gastroenteritis, cyclic vomiting from marijuana use - Encourage fluid intake as tolerated, avoiding dairy products. - Continue IV antiemetics as needed - Encourage marijuana cessation Bilateral serous otitis media - Likely viral in nature: blood culture, urine cultures negative, afebrile. Rhinorrhea - Flonase BID PRN Dehydration - Continue IV fluids - Potassium 3.2, replace with kcl 60 meq PO now. DVT Prophylaxis - Patient refusing ordered Lovenox - Sequential compression devices Written by Santos Knight PA-C, acting as scribe for Dr. Valenzuela on 02/20/17 at 1537. The documentation accurately reflects the work and decisions performed face-to- face by Dr. Valenzuela on 02/20/17 at 1537. Santos Knight Feb 20, 2017 14:17 possibly discharge after dinner. Santos Knight Feb 20, 2017 14:17
[2017-02-20] MEDS ORDERED: POTASSIUM CHLORIDE 10 MEQ CONTROLLED RELEASE TAB PO ONE (14:45)
[2017-02-20] MEDS: FLUTICASONE PROPIONATE 50 MCG/ACT 16 GM NASAL SPRAY NASAL SCH ×2 (15:00→21:41)
[2017-02-20 16:00] VITALS: BP 160/98; PULSE 83; RESP 22; TEMP 96.4; O2SAT 98
[2017-02-20 20:00] VITALS: BP 137/97; PULSE 96; RESP 20; TEMP 99; O2SAT 97
[2017-02-21] VITALS: BP 141/94; PULSE 92; RESP 20; TEMP 99.2; O2SAT 98
[2017-02-21] MEDS: ACETAMINOPHEN 500 MG CPLT PO PRN ×2 (01:32→07:58)
[2017-02-21 07:56] VITALS: BP 130/94; PULSE 91; RESP 20; TEMP 96.8; O2SAT 98
[2017-02-21] MEDS: FLUTICASONE PROPIONATE 50 MCG/ACT 16 GM NASAL SPRAY NASAL SCH (07:59)
[2017-02-21] MEDS: ENOXAPARIN SODIUM 40 MG/0.4 ML SYRINGE SQ SCH (08:00)
[2017-02-21] MEDS: SODIUM CHLORIDE 0.9% FLUSH 10 ML FLUSH IV FLUSH SCH (08:00)
[2017-02-21] MEDS: SODIUM CHLOR 0.9% 1000 ML INJ 1,000 ML IV SCH (08:00)
[2017-02-21] MEDS ORDERED: FLUT50SP NASAL (11:29)
--- NOTE | 2017-02-21 11:30 | HHI.DCPOC ---
Discharge Care Plan Diagnosis: (1) Gastroenteritis (2) Vomiting (3) Moderate dehydration Goals to Promote Your Health * To prevent worsening of your condition and complications * To maintain your health at the optimal level Directions to Meet Your Goals Take your medications as prescribed Follow your dietary instruction Follow activity as directed Keep your appointments as scheduled Take your immunizations and boosters as scheduled If your symptoms worsen call your PCP, if no PCP go to Urgent Care Center or Emergency Room Smoking is Dangerous to Your Health. Avoid second hand smoke Call the 24-hour hour crisis hotline for domestic abuse at Santos Knight Feb 21, 2017 11:30
--- NOTE | 2017-02-21 11:43 | HHI.DS ---
Discharge Summary Admission Date Feb 19, 2017 at 05:27 Discharge Date: Feb 21, 2017 Admitting Diagnosis viral gastroenteritis, bilateral otitis media, dehydration (1) Viral gastroenteritis ICD Code: A08.4 Diagnosis: Principal (2) Acute serous otitis media of both ears ICD Code: H65.03 Diagnosis: Principal (3) Marijuana smoker ICD Code: F12.20 Diagnosis: Principal (4) Bandemia ICD Code: D72.825 Diagnosis: Principal Procedures NONE Brief History - From Admission Mrs. Michael is a 26-year-old female who had previously presented to the Emergency department on 02/16 for initial complaints of nausea, vomiting, sore throat and intermittent left ear pain. She was evaluated, given fluids, encouraged adequate hydration and sent home with Zofran PO as needed. Patient returns to the ED with ongoing nausea and vomiting, sore throat, nonproductive cough and now bilateral ear pain. She does report diffuse body aches and generalized weakness. Patient was unable to tolerate previously prescribed PO Zofran. She has also been unable to tolerate foods and liquids. Patient does report a temperature of 103 a few days ago. Denies any associated diarrhea or recent weight loss. She denies any cough, SOB, chest pain or palpitations. CBC/BMP: 02/20/17 0630 02/20/17 0630 Significant Findings Laboratory Tests Test 02/19/17 02/19/17 02/20/17 03:40 09:27 06:30 Hemoglobin 10.8 GM/DL 9.8 GM/DL (11.6-15.3) (11.6-15.3) Hematocrit 34.7 % 31.9 % (35.0-46.0) (35.0-46.0) Mean Corpuscular Volume 77.5 FL 77.1 FL (80.0-100.0) (80.0-100.0) Mean Corpuscular Hemoglobin 24.1 PG 23.8 PG (27.0-34.0) (27.0-34.0) Mean Corpuscular Hemoglobin 31.1 % 30.9 % Concent (32.0-36.0) (32.0-36.0) Neutrophils (%) (Auto) 82.4 % (16.0-70.0) Neutrophils % (Manual) 76 % (16-70) Band Neutrophils % 8 % (0-6) Potassium Level 3.4 MEQ/L 3.2 MEQ/L (3.5-5.1) (3.5-5.1) Calcium Level 8.2 MG/DL 7.6 MG/DL (8.5-10.1) (8.5-10.1) Albumin 3.1 GM/DL (3.4-5.0) Urine Protein 30 mg/dL (NEG-TRACE) Urine Ketones 80 OR GREATER mg/dL (NEG) Urine Occult Blood SMALL (NEG) Urine Bacteria MOD /hpf (NONE) Urine Mucus FEW /lpf (OCC) Urine Yeast (Budding) FEW (NONE) Platelet Count 122 TH/MM3 (150-450) Chloride Level 109 MEQ/L (98-107) PE at Discharge GENERAL: This is a well-nourished, well-developed patient, in no apparent distress. SKIN: No rashes, ecchymoses or lesions. Cool and dry. HEAD: Atraumatic. Normocephalic. No temporal or scalp tenderness. EYES: Pupils equal round and reactive. Extraocular motions intact. No scleral icterus. No injection or drainage. ENT: Nose without bleeding, purulent drainage or septal hematoma. Throat without erythema or exudate. Uvula midline. Airway patent. Temporal membranes erythematous without exudate. NECK: Trachea midline. No JVD or lymphadenopathy. Supple, nontender, no meningeal signs. CARDIOVASCULAR: Regular rate and rhythm without murmurs, gallops, or rubs. RESPIRATORY: Clear to auscultation. Breath sounds equal bilaterally. No wheezes , rales, or rhonchi. GASTROINTESTINAL: Abdomen soft, non-tender, nondistended. No hepato-splenomegaly , or palpable masses. No guarding. MUSCULOSKELETAL: Extremities without clubbing, cyanosis, or edema. No joint tenderness, effusion, or edema noted. No calf tenderness. Negative Homans sign bilaterally. NEUROLOGICAL: Awake and alert. Cranial nerves II through XII intact. Motor and sensory grossly within normal limits. Five out of 5 muscle strength in all muscle groups. Normal speech. Hospital Course Mrs. Michael, a 26-year-old female initially came to the ED five days ago with initial complaints of nausea, vomiting, sore throat, and intermittent left ear pain and inability to tolerate PO. Patient was admitted, closely monitored and given IV fluids for dehydration and antiemetics PRN. Electrolytes were replaced as necessary. Patient now tolerating clear liquids without nausea or vomiting, encouraged to advance diet as tolerated while avoiding any dairy products for several days. Bilateral serous otitis media now resolved, no further complaints of pain. Denies any further weakness or body aches. Blood cultures and urine cultures negative. Afebrile. Rhinorrhea developed and was placed on Flonase nasal spray as needed. Patient was educated on marijuana cessation when going home. Pt Condition on Discharge: Stable Discharge Disposition: Discharge Home Discharge Time: > 30 minutes Discharge Instructions DIET: Follow Instructions for: As Tolerated, No Restrictions Speech Therapy-Diet Recommends: Regular Activities you can perform: Regular-No Restrictions New Medications: Fluticasone Nasal [place] (Fluticasone Nasal [place]) 50 Mcg/Act Naspr 1 SPRAY NASAL BID rhinorrhea #1 BOTTLE Additional Information Written by Santos Knight PA-C, acting as scribe for Dr. Valenzuela on 02/21/17 at 1340. The documentation accurately reflects the work and decisions performed face-to- face by Dr. Valenzuela on 02/21/17 at 1340. All or portions of this note were transcribed by scribbryson Knight. I, Dr. Ita Valenzuela personally performed the history, physical exam, and medical decision making; and confirmed the accuracy of the information in the transcribed note. Authenticated by Dr. Ita Valenzuela on 02/21/17 at 18:00. Santos Knight Feb 21, 2017 11:43 Ita Valenzuela MD Feb 21, 2017 18:00
[2017-02-21 12:00] VITALS: BP 123/100; PULSE 86; RESP 20; TEMP 98; O2SAT 99
== END 2017-02-21 14:58 | disposition home or self-care (01) | DRG 392 ==
LOC: PHED 00:01 → PHEDA 05:27 → PH3B 07:37
PROVIDERS: ADMIT Family Medicine; ATTEND Family Medicine
DX: A08.4 Viral intestinal infection, unspecified (principal); I10 Essential (primary) hypertension; E86.0 Dehydration; F12.90 Cannabis use, unspecified, uncomplicated; H65.03 Acute serous otitis media, bilateral; D72.825 Bandemia; F60.3 Borderline personality disorder
CPT/HCPCS: 36620; 76937; 80048; 80053; 81001; 83605; 83690; 83735; 84702; 85007; 85025; 85027; 87040; 87086; 96361; 96374; 96375; J0696; J1650; J1885; J2405; J7030

== ENCOUNTER 2017-06-27 15:54 | Emergency (ER) | payer SELFPAY ==
[~2017-06-27] VITALS: Ht 165.1 cm; Wt 116.8 kg
[~2017-06-27 15:54] MED LIST changes: +FLUT50SP NASAL; -ZOFR4TAB3 SL
[2017-06-27 15:59] VITALS: BP 166/77; PULSE 81; RESP 16; TEMP 98.8; O2SAT 99
[2017-06-27] MEDS ORDERED: THC PO (16:21)
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
[2017-06-27 17:24] VITALS: BP 142/91; PULSE 79; RESP 16; O2SAT 99
== END 2017-06-27 17:30 | disposition home or self-care (01) ==
LOC: PHED 15:54
DX: S06.0X0A Concussion without loss of consciousness, initial encounter (principal); R68.84 Jaw pain; I10 Essential (primary) hypertension; Z86.59 Personal history of other mental and behavioral disorders; Z86.79 Personal history of other diseases of the circulatory system; Z87.39 Personal history of other diseases of the musculoskeletal system and connective tissue; Y04.2XXA Assault by strike against or bumped into by another person, initial encounter
CPT/HCPCS: 70450; 70486; 84703

== ENCOUNTER 2017-07-10 10:41 | Emergency (ER) | payer SELFPAY ==
[~2017-07-10] VITALS: Ht 165.1 cm; Wt 114.2 kg
[~2017-07-10 10:41] MED LIST changes: -FLUT50SP NASAL; +THC PO
[2017-07-10 10:51] VITALS: BP 139/74; PULSE 92; RESP 18; TEMP 98.1; O2SAT 100
[2017-07-10] MEDS ORDERED: ONDANSETRON ODT 4 MG TAB PO ONE (11:30)
--- NOTE | 2017-07-10 11:33 | PD ---
HPI Chief Complaint: GI Complaint Time Seen by Provider: 11:17 Travel History International Travel<30 days: No Contact w/Intl Traveler<30days: No Traveled to known affect area: No History of Present Illness HPI The patient was seen and examined in the presence of the nurse. This is a 26- year-old frequent visitor to ER with PTSD. She complains of nausea and vomiting and diarrhea. Duration one day. No ill contacts. She also complained of some mild central chest pain. Is readily reproducible with movement or deep breath. No injury. Denies breath or cough or fever or shortness of breath. PFSH Past Medical History Hx Anticoagulant Therapy: No Anxiety: Yes Depression: Yes Cardiovascular Problems: Yes (HTN; CHEST PAIN AT TIMES) Chemotherapy: No Cerebrovascular Accident: No Diabetes: No Diminished Hearing: No Hypertension: Yes Musculoskeletal: Yes (CHRONIC BACK PAIN) Psychiatric: Yes (BORDERLINE PERSONALITY DISORDER, PTSD) Respiratory: No Immunizations Current: No Thyroid Disease: Yes Influenza Vaccination: No ?: Not Tubal Ligation: Yes Past Surgical History Section: Yes Hysterectomy: No Tonsillectomy: Yes Social History Alcohol Use: No Tobacco Use: No Substance Use: Yes (MARIJUANA) Allergies-Medications (Allergen,Severity, Reaction): Coded Allergies: aripiprazole (Unverified Allergy, Severe, CHEST PAIN, 07/10/17) Pertussis Vaccines (Unverified Allergy, Unknown, CHILD, 07/10/17) Reported Meds & Prescriptions Reported Meds & Active Scripts Active Reported [Thc] 50 Mg PO DAILY Review of Systems General / Constitutional: No: Fever Eyes: No: Visual changes HENT: No: Headaches Cardiovascular: Positive: Chest Pain or Discomfort Respiratory: No: Shortness of Breath Gastrointestinal: Positive: Nausea, Vomiting, Diarrhea Genitourinary: No: Dysuria Musculoskeletal: No: Pain Skin: No Rash Neurologic: No: Weakness Psychiatric: No: Depression Endocrine: No: Polydipsia Hematologic/Lymphatic: No: Easy Bruising Physical Exam Narrative GENERAL: Well-nourished, well-developed patient in no apparent distress. SKIN: Focused skin assessment reveals no rash and nodules. Skin is Warm and dry. HEAD: Atraumatic. Normocephalic. EYES: Pupils equal and round. No scleral icterus. No injection or drainage. ENT: No nasal bleeding or discharge. Mucous membranes pink and moist. NECK: Trachea midline. No JVD. CARDIOVASCULAR: Regular rate and rhythm. No murmur appreciated. RESPIRATORY: No accessory muscle use. Clear to auscultation. Breath sounds equal bilaterally. GASTROINTESTINAL: Abdomen soft, non-tender, nondistended. Hepatic and splenic margins not palpable. MUSCULOSKELETAL: No obvious deformities. No clubbing. No cyanosis. No edema. Chest wall exam reveals that it has readily reproducible tenderness to the center sternum. Clearly replicates her pain complaint NEUROLOGICAL: Awake and alert. No obvious cranial nerve deficits. Motor grossly within normal limits. Normal speech. PSYCHIATRIC: Appropriate mood and affect; insight and judgment normal. Data Data Last Documented VS Vital Signs Date Time Temp Pulse Resp B/P Pulse Ox O2 Delivery O2 Flow Rate FiO2 07/10/17 10:51 98.1 92 18 139/74 100 MDM Medical Decision Making Medical Screen Exam Complete: Yes Emergency Medical Condition: Yes Medical Record Reviewed: Yes Differential Diagnosis Gastroenteritis, food poisoning, colitis Narrative Course I have reviewed the patient's electronic medical record. Her abdomen is soft and benign and nontender. She is euvolemic with normal vital signs. I gave her dose of Zofran here and a prescription for the same Her chest discomfort is clearly chest wall pain, no clinical suspicion of ACS in this 26-year-old with no cardiac problems Stable for outpatient family physician follow-up Urine was done Diagnosis Primary Impression: Nausea vomiting and diarrhea Additional Impression: Musculoskeletal chest pain Additional Instructions: The patient was advised to follow up with their physician and return if they worsen. I have recommended clear liquids for 24 hours, then gradually advance as tolerated. Med/Other Pt SpecificInfo: Prescription(s) given Disposition: 01 DISCHARGE HOME Condition: Stable Santos Haas MD Jul 10, 2017 11:33
[2017-07-10] MEDS ORDERED: ZOFR4TAB PO (11:34)
== END 2017-07-10 11:53 | disposition home or self-care (01) ==
LOC: PHED 10:41
DX: R11.2 Nausea with vomiting, unspecified (principal); R19.7 Diarrhea, unspecified; R07.89 Other chest pain
CPT/HCPCS: 84703; 99283

== ENCOUNTER 2017-09-05 08:17 | Emergency (ER) | payer SELFPAY ==
[~2017-09-05] VITALS: Ht 166.4 cm; Wt 111.8 kg
[~2017-09-05 08:17] MED LIST changes: +ZOFR4TAB PO
[2017-09-05 08:25] VITALS: BP 131/70; PULSE 82; RESP 16; TEMP 98.8; O2SAT 98
[2017-09-05 08:46] LABS: BLOOD, URINE SMALL (NEG); GLUCOSE,URINE NEG (NEG); KETONE, URINE TRACE mg/dL (NEG); NITRITE,URINE NEG (NEG); PH, URINE 5.5 (5.0-8.5)
[2017-09-05 09:06] LABS: METHOD OF COLLECTION CLEAN CATCH; URINE COLOR YELLOW (YELLW/STRAW)
[2017-09-05 09:10] LABS: WBC, URINE 0-2 /hpf (0-5)
[2017-09-05 09:11] LABS: COMMENT (UR) CULT NOT INDICATED; CULTURE IF INDICATED CULT NOT INDICATED
[2017-09-05] MEDS ORDERED: ZOFR4TAB PO (09:15)
[2017-09-05] MEDS ORDERED: DICY10 PO (09:16)
--- NOTE | 2017-09-05 09:17 | PD ---
HPI Chief Complaint: GI Complaint Time Seen by Provider: 08:31 Travel History International Travel<30 days: No Contact w/Intl Traveler<30days: No Traveled to known affect area: No History of Present Illness HPI 27 yo F c/o abdominal cramping and n/v this am. lmp was one month prior. similar symptoms accompany menstruation. no abnormal vaginal bleeding/ discharge. no fever/chills. severity mild to moderate. no urinary complaint. no diarrhea. decreased PO yesterday noted. PFSH Past Medical History Hx Anticoagulant Therapy: No Anxiety: Yes Depression: Yes Cardiovascular Problems: Yes (HTN; CHEST PAIN AT TIMES) Chemotherapy: No Cerebrovascular Accident: No Diabetes: No Diminished Hearing: No Hypertension: Yes Musculoskeletal: Yes (CHRONIC BACK PAIN) Psychiatric: Yes (BORDERLINE PERSONALITY DISORDER, PTSD) Respiratory: No Immunizations Current: No Thyroid Disease: Yes Influenza Vaccination: No ?: Not LMP: 08/09/17 Tubal Ligation: Yes Past Surgical History Section: Yes Hysterectomy: No Tonsillectomy: Yes Social History Alcohol Use: No Tobacco Use: No Substance Use: No Allergies-Medications (Allergen,Severity, Reaction): Coded Allergies: aripiprazole (Unverified Allergy, Severe, CHEST PAIN, 09/05/17) Pertussis Vaccines (Unverified Allergy, Unknown, CHILD, 09/05/17) Reported Meds & Prescriptions Reported Meds & Active Scripts Active Bentyl (Dicyclomine HCl) 10 Mg Cap 10 Mg PO TID Zofran (Ondansetron HCl) 4 Mg Tab 4 Mg PO Q6HR PRN Reported [Thc] 50 Mg PO DAILY Review of Systems Except as stated in HPI: all other systems reviewed are Neg General / Constitutional: No: Fever Gastrointestinal: Positive: Nausea, Vomiting Physical Exam Narrative GENERAL: 27 yo F, WNWD, NAD SKIN: Warm and dry. HEAD: Atraumatic. Normocephalic. EYES: Pupils equal and round. No scleral icterus. No injection or drainage. ENT: No nasal bleeding or discharge. Mucous membranes pink and moist. NECK: Trachea midline. No JVD. CARDIOVASCULAR: Regular rate and rhythm. RESPIRATORY: No accessory muscle use. Clear to auscultation. Breath sounds equal bilaterally. GASTROINTESTINAL: Abdomen soft, non-tender, nondistended. Hepatic and splenic margins not palpable. MUSCULOSKELETAL: Extremities without clubbing, cyanosis, or edema. No obvious deformities. NEUROLOGICAL: Awake and alert. No obvious cranial nerve deficits. Motor grossly within normal limits. Five out of 5 muscle strength in the arms and legs. Normal speech. PSYCHIATRIC: Appropriate mood and affect; insight and judgment normal. Data Data Last Documented VS Vital Signs Date Time Temp Pulse Resp B/P (MAP) Pulse Ox O2 Delivery O2 Flow Rate FiO2 09/05/17 08:25 98.8 82 16 131/70 (90) 98 VS reviewed Orders Orders Urinalysis - C+S If Indicated (09/05/17 08:33) Ed Urine Pregnancytest Poc (09/05/17 08:33) Ed Discharge Order (09/05/17 09:17) Ondansetron Odt (Zofran Odt) (09/05/17 09:30) Labs Laboratory Tests Test 09/05/17 08:40 Urine Collection Type CLEAN CATCH Urine Color YELLOW Urine Turbidity MOD Urine pH 5.5 Urine Specific [place] 1.033 Urine Protein NEG mg/dL Urine Glucose (UA) NEG mg/dL Urine Ketones TRACE mg/dL Urine Occult Blood SMALL Urine Nitrite NEG Urine Bilirubin NEG Urine Leukocyte Esterase NEG Urine RBC 4-9 /hpf Urine WBC 0-2 /hpf Urine Squamous Epithelial Cells 6-8 /hpf Urine Amorphous Sediment LARGE Microscopic Urinalysis Comment CULT NOT INDICATED Urine Collection Time 08:40 [facility] Medical Decision Making Medical Screen Exam Complete: Yes Emergency Medical Condition: Yes Differential Diagnosis Constipation, Gastritis, Acute Cholecystitis, Biliary Colic, Pancreatitis, NEWELL , Hepatitis, Bowel Obstruction, Cystitis, Mesenteric Ischemia, AAA, Appendicitis , Renal Stone/Hydronephrosis, GERD, perforated viscous Narrative Course Urinalysis shows no UTI UA negative zofran bentyl work note provided per patient's request Diagnosis Primary Impression: Vomiting Qualified Codes: R11.10 - Vomiting, unspecified Additional Impression: Abdominal cramping Referrals: [facility] call for appointment Additional Instructions: You have a choice when it comes to health care, and we are glad that you chose [facility]. Hopefully, we have met your expectations on today's visit. You are welcome to return to [facility] at any time, as we are committed to meeting the health care needs of our community. Med/Other Pt SpecificInfo: Prescription(s) given Scripts Dicyclomine (Bentyl) 10 Mg Cap 10 MG PO TID for Bowel Management, #15 CAP 0 Refills Prov: Jose Luis Donovan MD 09/05/17 Ondansetron (Zofran) 4 Mg Tab 4 MG PO Q6HR Y for NAUSEA OR VOMITING, #12 TAB 0 Refills Prov: Jose Luis Donovan MD 09/05/17 Disposition: 01 DISCHARGE HOME Condition: Stable Jose Luis Donovan MD Sep 05, 2017 09:17
[2017-09-05] MEDS ORDERED: ONDANSETRON ODT 4 MG TAB PO ONE (09:30)
== END 2017-09-05 09:35 | disposition home or self-care (01) ==
LOC: PHED 08:17
DX: R11.2 Nausea with vomiting, unspecified (principal); R10.9 Unspecified abdominal pain; I10 Essential (primary) hypertension
CPT/HCPCS: 81001; 84703; 99284

== ENCOUNTER 2017-09-23 23:02 | Emergency (ER) | payer OTHER ==
[~2017-09-23] VITALS: Ht 165.1 cm; Wt 109.4 kg
[~2017-09-23 23:02] MED LIST changes: +DICY10 PO
[2017-09-23 23:17] VITALS: BP 145/68; PULSE 119; RESP 16; TEMP 98.7; O2SAT 97
[2017-09-23] MEDS ORDERED: [UNRECOGNIZED DRUG - OTHER] INH (23:37)
[2017-09-24] MEDS ORDERED: TETANUS/DIPHTHERIA TOXOID ADULT 0.5 ML VIAL IM ONE (00:45)
--- NOTE | 2017-09-24 01:09 | RADRPT ---
EXAM DATE/TIME: 09/24/2017 00:47 [facility] COMPARISON: No previous studies available for comparison. INDICATIONS : Left wrist pain after fall through a window. MEDICAL HISTORY : None. SURGICAL HISTORY : Tubal ligation. ENCOUNTER: Initial ACUITY: 1 day PAIN SCORE: 9/10 LOCATION: Left wrist. FINDINGS: Three view examination of the left wrist demonstrates no soft tissue swelling, dislocation, or fractu re. The carpal bones are in normal alignment. The joint spaces are maintained. Bony mineralization is normal. CONCLUSION: Unremarkable examination of the left wrist. Demetris Summers MD on September 24, 2017 at 1:07 Board Certified Radiologist. This report was verified electronically.
--- NOTE | 2017-09-24 01:10 | PD ---
HPI Chief Complaint: Injury Time Seen by Provider: 00:41 Travel History International Travel<30 days: No Contact w/Intl Traveler<30days: No Traveled to known affect area: No History of Present Illness HPI 27-year-old female presents to the emergency department by private transportation for evaluation of laceration to the volar aspect of the left wrist. Patient is left-handed. Patient states just prior to arrival to the emergency department around 9 PM she slipped on some dark urine on the floor falling forward and cutting her wrist on a broken pane glass window. Patient denies any numbness tingling or weakness of the digits. Patient does not know her tetanus status. Patient denies . Patient has taken no medications prior to arrival to the emergency department. Patient rates her pain at the laceration site 5/10 in intensity. PFSH Past Medical History Narrative Medical Anxiety depression hypertension tubal ligation tonsillectomy no tobacco use nursing notes reviewed Hx Anticoagulant Therapy: No Anxiety: Yes Depression: Yes Cardiovascular Problems: Yes ( CHEST PAIN AT TIMES) Chemotherapy: No Cerebrovascular Accident: No Diabetes: No Diminished Hearing: No Hypertension: Yes Musculoskeletal: Yes (CHRONIC BACK PAIN) Psychiatric: Yes (BORDERLINE PERSONALITY DISORDER, PTSD) Respiratory: No Immunizations Current: No Thyroid Disease: Yes Tetanus Vaccination: Unknown Influenza Vaccination: Yes ?: Unknown LMP: 09/06/17 : 4 Para: 4 Tubal Ligation: Yes Past Surgical History Section: Yes (X4) Hysterectomy: No Tonsillectomy: Yes Social History Alcohol Use: No Tobacco Use: No Substance Use: No Allergies-Medications (Allergen,Severity, Reaction): Coded Allergies: aripiprazole (Unverified Allergy, Severe, CHEST PAIN, 09/23/17) Pertussis Vaccines (Unverified Allergy, Unknown, CHILD, 09/23/17) Reported Meds & Prescriptions Reported Meds & Active Scripts Active Reported [Medical Marijuna] 50 Mg INH HS Review of Systems Except as stated in HPI: all other systems reviewed are Neg General / Constitutional: No: Fever, Chills HENT: No: Congestion Cardiovascular: No: Chest Pain or Discomfort Respiratory: No: Shortness of Breath Gastrointestinal: No: Abdominal Pain Genitourinary: No: Flank Pain Musculoskeletal: Positive: Pain Neurologic: No: Weakness (left wrist), Focal Abnormalities, Paresthesia, Sensory Disturbance Hematologic/Lymphatic: No: Lymph Node Enlargement Physical Exam Narrative GENERAL: Well-developed well-nourished female in no acute distress no respiratory distress SKIN: Warm and dry. NECK: Supple, trachea midline. No JVD or lymphadenopathy. CARDIOVASCULAR: Regular rate and rhythm without murmurs, gallops, or rubs. RESPIRATORY: Breath sounds equal bilaterally. No accessory muscle use. MUSCULOSKELETAL: No cyanosis, or edema. Attention left volar wrist 1 cm linear laceration without bleeding; digits are neurovascular tendon intact with intact , apposition capillary refill brisk and less than 2 seconds per digit. Radial and ulnar pulses 2+ to palpation. Intact wrist flexion discomfort with wrist extension. Data Data Last Documented VS Vital Signs Date Time Temp Pulse Resp B/P (MAP) Pulse Ox O2 Delivery O2 Flow Rate FiO2 09/24/17 02:00 72 20 138/74 (95) 98 09/23/17 23:17 98.7 Orders Orders Tetanus/Diphtheria Tox Adult (Tetanus/Di (09/24/17 00:45) Wrist, Complete ([id number]) (09/24/17 ) Wound Care (09/24/17 00:41) Ibuprofen (Motrin) (09/24/17 01:30) Acetaminophen (Tylenol) (09/24/17 01:30) Lidocaine Pf 1% Inj (Xylocaine-Mpf 1% In (09/24/17 01:30) Ed Discharge Order (09/24/17 01:45) [facility] Medical Decision Making Medical Screen Exam Complete: Yes Emergency Medical Condition: Yes Medical Record Reviewed: Yes Interpretation(s) Last Impressions Wrist X-Ray 09/24/17 0000 Signed Impressions: Service Date/Time: Sunday, September 24, 2017 00:47 - CONCLUSION: Unremarkable examination of the left wrist. Demetris Summers MD Differential Diagnosis Laceration tendon injury neurovascular injury retained foreign body Narrative Course Tetanus status updated; imaging study order to evaluate for retained foreign body; wound site cleansed Procedures Procedure Narrative LACERATION LOCATION: Left wrist volar aspect LENGTH: 1 cm NUMBER OF STITCHES/GRAYSON: 2 REPAIR: The area of the laceration was prepped with Betadine and sterilely draped. The laceration was infiltrated with 1% lidocaine plain. The wound was copiously irrigated and explored without evidence of foreign body, tendon injury or neurovascular injury. The wound was closed using 5-0 Prolene. This was a single layer repair. A sterile dressing was applied. The patient was advised to keep the dressing clean and dry. Patient tolerated the procedure well. Tetanus status updated. Diagnosis Primary Impression: Wrist laceration Qualified Codes: S61.512A - Laceration without foreign body of left wrist, initial encounter Referrals: Primary Care Physician 2 days Patient Instructions: General Instructions Departure Forms: Tests/Procedures, Work Release Special Instructions: no use left hand x 2 days Additional Instructions: wound check at 2 days; suture removal at 5 days Keep site clean and dry Change dressing daily Use Polysporin ointment May take acetaminophen or ibuprofen per package instructions as needed for minor pain or for fever 100.4F or greater Disposition: 01 DISCHARGE HOME Condition: Stable Tati Talavera MD Sep 24, 2017 01:10
[2017-09-24] MEDS ORDERED: LIDOCAINE HCL 1% PF 30 ML VIAL INFIL ONE (01:30)
[2017-09-24] MEDS ORDERED: IBUPROFEN 800 MG TAB PO ONE (01:30)
[2017-09-24] MEDS ORDERED: ACETAMINOPHEN 325 MG TAB PO ONE (01:30)
[2017-09-24 02:00] VITALS: BP 138/74
== END 2017-09-24 03:06 | disposition home or self-care (01) ==
LOC: PHED 23:02
DX: S61.512A Laceration without foreign body of left wrist, initial encounter (principal); W01.110A Fall on same level from slipping, tripping and stumbling with subsequent striking against sharp glass, initial encounter
CPT/HCPCS: 12001; 73110; 90471

== ENCOUNTER 2017-11-19 08:46 | Emergency (ER) | payer OTHER ==
[~2017-11-19] VITALS: Ht 165.1 cm; Wt 103.2 kg
[~2017-11-19 08:46] MED LIST changes: -DICY10 PO; -THC PO; -ZOFR4TAB PO; +[UNRECOGNIZED DRUG - OTHER] INH
[2017-11-19 08:49] VITALS: BP 123/56; PULSE 72; RESP 16; TEMP 98.4; O2SAT 99
[2017-11-19] MEDS ORDERED: diphenhydrAMINE HCL 50 MG/ML VIAL IV PUSH ONE (09:30)
[2017-11-19] MEDS ORDERED: SODIUM CHLOR 0.9% 1000 ML INJ 1,000 ML IV ONE (09:30)
[2017-11-19] MEDS ORDERED: KETOROLAC TROMETHAMINE 30 MG/ML (IVP) VIAL IV PUSH ONE (09:30)
[2017-11-19] MEDS ORDERED: PROCHLORPERAZINE INJ 10 MG/2 ML VIAL IV PUSH ONE (09:30)
[2017-11-19 09:40] VITALS: BP 109/76; PULSE 63; RESP 18; O2SAT 99
[2017-11-19 10:08] LABS: BASOPHIL # 0.3 TH/MM3 (0-0.2); EOSINOPHIL # 0.1 TH/MM3 (0-0.4); EOSINOPHIL % 1.7 % (0.0-4.0); HEMATOCRIT 37.8 % (35.0-46.0); LYMPH % 23.8 % (9.0-44.0); LYMPHOCYTE # 1.8 TH/MM3 (1.0-4.8); MEAN CELL VOLUME 76.5 FL (80.0-100.0); MEAN CORPUSCULAR HEMOGLOBIN 24.3 PG (27.0-34.0); MEAN CORPUSCULAR HGB CONC 31.7 % (32.0-36.0); MEAN PLATELET VOLUME 9.7 FL (7.0-11.0); MONO % 5.1 % (0.0-8.0); MONOCYTE # 0.4 TH/MM3 (0-0.9); NEUT % 65.4 % (16.0-70.0); PLATELET COUNT 201 TH/MM3 (150-450); RED BLOOD COUNT 4.94 MIL/MM3 (4.00-5.30); RED CELL DISTRIBUTION WIDTH 15.4 % (11.6-17.2); WHITE BLOOD COUNT 7.6 TH/MM3 (4.0-11.0)
[2017-11-19 10:09] LABS: BILIRUBIN, URINE NEG (NEG); BLOOD, URINE NEG (NEG); GLUCOSE,URINE NEG (NEG); KETONE, URINE NEG (NEG); NITRITE,URINE NEG (NEG); URINE LEUKOCYTE ESTERASE NEG (NEG)
[2017-11-19 10:18] LABS: CHLORIDE 112 MEQ/L (98-107); SODIUM (NA) 141 MEQ/L (136-145)
[2017-11-19 10:21] LABS: CALCIUM 7.9 MG/DL (8.5-10.1)
[2017-11-19 10:22] LABS: ALBUMIN 3.4 GM/DL (3.4-5.0); BICARBONATE 21.7 MEQ/L (21.0-32.0); BLOOD UREA NITROGEN 17 MG/DL (7-18); GLUCOSE,RANDOM 84 MG/DL (74-106)
[2017-11-19 10:23] VITALS: BP 139/71; PULSE 64; RESP 18; O2SAT 100
[2017-11-19 10:25] LABS: ALT (GPT) 19 U/L (10-53); AST (GOT) 20 U/L (15-37); CREATININE 0.64 MG/DL (0.50-1.00); GLOMERULAR FILTRATION RATE 110 ML/MIN (>89)
--- NOTE | 2017-11-19 10:25 | RADRPT ---
EXAM DATE/TIME: 11/19/2017 09:47 [facility] COMPARISON: No previous studies available for comparison. INDICATIONS : Chest pain, nausea, vomiting, migrane. MEDICAL HISTORY : Hypertension. Thyroid disease. SURGICAL HISTORY : Tonsillectomy. Tubal ligation. section. Right ankle ENCOUNTER: Initial ACUITY: 3 days PAIN SCORE: 5/10 LOCATION: chest FINDINGS: PA and lateral views of the chest demonstrate the lungs to be symmetrically aerated without evidence of mass, infiltrate or effusion. The cardiomediastinal contours are unremarkable. Osseous structure s are intact. CONCLUSION: 1. No acute cardiopulmonary disease. Lobo Macias MD on November 19, 2017 at 10:23 Board Certified Radiologist. This report was verified electronically.
[2017-11-19 10:27] LABS: TOTAL BILIRUBIN ADULT 0.2 MG/DL (0.2-1.0)
[2017-11-19 10:28] LABS: RBC, URINE 0-3 /hpf (0-3); SQUAMOUS EPITHELIAL CELL URINE 0-5 /hpf (0-5); URINE COLOR YELLOW (YELLW/STRAW); WBC, URINE 0-2 /hpf (0-5)
[2017-11-19 10:28] LABS: ALKALINE PHOSPHATASE 51 U/L (45-117)
[2017-11-19 10:30] LABS: TROPONIN I LESS THAN 0.02 NG/ML (0.02-0.05)
[2017-11-19] MEDS ORDERED: ZOFR4TAB3 SL (11:03)
--- NOTE | 2017-11-19 11:03 | PD ---
HPI Chief Complaint: Headache Time Seen by Provider: 09:16 Travel History International Travel<30 days: No Contact w/Intl Traveler<30days: No Traveled to known affect area: No History of Present Illness HPI In complaining of headache, with nausea vomiting chest pain. She says she has been vomiting for the past 3 days. She says she then developed a headache early this morning. She says the pain is on the left side of her head, and is similar to previous headache she's had in the past. She also says she has some pain under her left arm, which she believes is a muscle spasm. She has also had this in the past and she said it was a muscle spasm. She tried taking some Tylenol without relief of her symptoms. She denies any abdominal pain. She denies fever or chills. She is not having any urinary symptoms. PFSH Past Medical History Hx Anticoagulant Therapy: No Anxiety: Yes Depression: Yes Cardiovascular Problems: Yes ( CHEST PAIN AT TIMES) Chemotherapy: No Cerebrovascular Accident: No Diabetes: No Diminished Hearing: No Hypertension: Yes Musculoskeletal: Yes (CHRONIC BACK PAIN) Psychiatric: Yes (BORDERLINE PERSONALITY DISORDER, PTSD) Respiratory: No Immunizations Current: No Thyroid Disease: Yes ?: Not LMP: 10/26/17 : 4 Para: 4 Tubal Ligation: Yes Past Surgical History Section: Yes (X4) Hysterectomy: No Tonsillectomy: Yes Social History Alcohol Use: No Tobacco Use: No Substance Use: No Allergies-Medications (Allergen,Severity, Reaction): Coded Allergies: aripiprazole (Unverified Allergy, Severe, CHEST PAIN, 11/19/17) Pertussis Vaccines (Unverified Allergy, Unknown, CHILD, 11/19/17) Reported Meds & Prescriptions Reported Meds & Active Scripts Active Reported [Medical Marijuna] 50 Mg INH HS Review of Systems Except as stated in HPI: all other systems reviewed are Neg General / Constitutional: No: Fever, Chills HENT: Positive: Headaches Cardiovascular: Positive: Chest Pain or Discomfort Respiratory: No: Cough, Shortness of Breath Gastrointestinal: Positive: Nausea, Vomiting Genitourinary: No: Dysuria Musculoskeletal: No: Myalgias, Edema Skin: No Rash, No Change in Pigmentation Neurologic: No: Weakness, Dizziness Physical Exam Narrative GENERAL: Awake and alert, in no acute distress. SKIN: Focused skin assessment warm/dry. HEAD: Atraumatic. Normocephalic. EYES: Pupils equal and round and reactive. No scleral icterus. Extraocular movements intact. ENT: Mucous membranes pink and moist. NECK: Trachea midline. No JVD. CARDIOVASCULAR: Regular rate and rhythm. No murmur appreciated. RESPIRATORY: No accessory muscle use. Clear to auscultation. Breath sounds equal bilaterally. GASTROINTESTINAL: Abdomen soft, non-tender, nondistended. MUSCULOSKELETAL: No obvious deformities. No clubbing. No cyanosis. No edema. NEUROLOGICAL: Awake and alert. No obvious cranial nerve deficits. Motor grossly within normal limits. Normal speech. PSYCHIATRIC: Appropriate mood and affect; insight and judgment normal. Data Data Last Documented VS Vital Signs Date Time Temp Pulse Resp B/P (MAP) Pulse Ox O2 Delivery O2 Flow Rate FiO2 11/19/17 10:23 64 18 139/71 (93) 100 Room Air 11/19/17 08:49 98.4 Orders Orders Iv Access Insert/Monitor (11/19/17 09:24) Complete Blood Count With Diff (11/19/17 09:24) Comprehensive Metabolic Panel (11/19/17 09:24) Troponin I (11/19/17 09:24) Chest, Pa & Lat (11/19/17 ) Urinalysis - C+S If Indicated (11/19/17 09:24) Ed Urine Pregnancytest Poc (11/19/17 09:24) Sodium Chlor 0.9% 1000 Ml Inj (Ns 1000 M (11/19/17 09:30) Ketorolac Inj (Toradol Inj) (11/19/17 09:30) Prochlorperazine Inj (Compazine Inj) (11/19/17 09:30) Diphenhydramine Inj (Benadryl Inj) (11/19/17 09:30) Electrocardiogram (11/19/17 ) Labs Laboratory Tests Test 11/19/17 09:45 11/19/17 09:56 Urine Color YELLOW Urine Turbidity CLEAR Urine pH 6.0 Urine Specific Ellis 1.027 Urine Protein NEG mg/dL Urine Glucose (UA) NEG mg/dL Urine Ketones NEG mg/dL Urine Occult Blood NEG Urine Nitrite NEG Urine Bilirubin NEG Urine Leukocyte Esterase NEG Urine RBC 0-3 /hpf Urine WBC 0-2 /hpf Urine Squamous Epithelial Cells 0-5 /hpf Microscopic Urinalysis Comment CULT NOT INDICATED White Blood Count 7.6 TH/MM3 Red Blood Count 4.94 MIL/MM3 Hemoglobin 12.0 GM/DL Hematocrit 37.8 % Mean Corpuscular Volume 76.5 FL Mean Corpuscular Hemoglobin 24.3 PG Mean Corpuscular Hemoglobin Concent 31.7 % Red Cell Distribution Width 15.4 % Platelet Count 201 TH/MM3 Mean Platelet Volume 9.7 FL Neutrophils (%) (Auto) 65.4 % Lymphocytes (%) (Auto) 23.8 % Monocytes (%) (Auto) 5.1 % Eosinophils (%) (Auto) 1.7 % Basophils (%) (Auto) 4.0 % Neutrophils # (Auto) 5.0 TH/MM3 Lymphocytes # (Auto) 1.8 TH/MM3 Monocytes # (Auto) 0.4 TH/MM3 Eosinophils # (Auto) 0.1 TH/MM3 Basophils # (Auto) 0.3 TH/MM3 CBC Comment AUTO DIFF Blood Urea Nitrogen 17 MG/DL Creatinine 0.64 MG/DL Random Glucose 84 MG/DL Total Protein 7.0 GM/DL Albumin 3.4 GM/DL Calcium Level 7.9 MG/DL Alkaline Phosphatase 51 U/L Aspartate Amino Transf (AST/SGOT) 20 U/L Alanine Aminotransferase (ALT/SGPT) 19 U/L Total Bilirubin 0.2 MG/DL Sodium Level 141 MEQ/L Potassium Level 4.5 MEQ/L Chloride Level 112 MEQ/L Carbon Dioxide Level 21.7 MEQ/L Anion Gap 7 MEQ/L Estimat Glomerular Filtration Rate 110 ML/MIN Troponin I LESS THAN 0.02 NG/ML MDM Medical Decision Making Medical Screen Exam Complete: Yes Emergency Medical Condition: Yes Medical Record Reviewed: Yes Differential Diagnosis Migraine versus dehydration versus electrolyte abnormality versus bronchitis versus pneumonia Narrative Course Patient is a 27-year-old female comes in complaining of headache with nausea and vomiting. Exam shows no neurologic abnormalities, no abdominal tenderness. IV established, labs sent. Labs show no acute abnormalities. Asked x-ray Shows no acute abnormalities. Patient given IV fluids, Toradol, Compazine, Benadryl. She reports resolution of her symptoms. She'll be discharged with a prescription for Zofran. Advised take Tylenol or ibuprofen as needed for pain. Advised drink plenty of fluids. Advised follow-up with a primary doctor. Advised to return to the ED as needed for any worsening symptoms. Diagnosis Primary Impression: Nausea and vomiting Qualified Codes: R11.2 - Nausea with vomiting, unspecified Additional Impression: Headache Qualified Codes: R51 - Headache Referrals: [facility] call for appointment Patient Instructions: Acute Headache (ED), Acute Nausea and Vomiting (ED), General Instructions Additional Instructions: Follow-up with a primary care doctor. Drink plenty of fluids. Take Zofran as needed for nausea. Take Tylenol or ibuprofen as needed for pain. Return to the ED as needed for any worsening symptoms. Scripts Ondansetron Odt (Zofran Odt) 4 Mg Tab 4 MG SL Q6HR Y for Nausea/Vomiting, #10 TAB 0 Refills Prov: Nita Azevedo MD 11/19/17 Disposition: 01 DISCHARGE HOME Condition: Stable Nita Azevedo MD Nov 19, 2017 11:03
[2017-11-19 11:45] VITALS: BP 128/78
--- NOTE | 2017-11-19 13:49 | EKG ---
Date Performed: 11/19/2017 Time Performed: 08:55:36 PTAGE: 27 years EKG: Sinus rhythm NORMAL ECG NO PREVIOUS TRACING DOCTOR: Ricardo Andrade Interpretating Date/Time 11/19/2017 13:49:30
== END 2017-11-19 11:48 | disposition home or self-care (01) ==
LOC: PHED 08:46
DX: R11.2 Nausea with vomiting, unspecified (principal); R51 Headache; R07.9 Chest pain, unspecified; M79.602 Pain in left arm; F32.9 Major depressive disorder, single episode, unspecified; I10 Essential (primary) hypertension; F43.10 Post-traumatic stress disorder, unspecified; F60.3 Borderline personality disorder; E07.9 Disorder of thyroid, unspecified
CPT/HCPCS: 71020; 80053; 81001; 84484; 84703; 85025; 93005; 96361; 96374; 96375; 99284; J0780; J1200; J1885; J7030

== ENCOUNTER 2018-01-13 13:47 | Emergency (ER) | payer OTHER ==
[~2018-01-13] VITALS: Ht 165.1 cm; Wt 96.5 kg
[~2018-01-13 13:47] MED LIST changes: +ZOFR4TAB3 SL
[2018-01-13 13:56] VITALS: BP 137/81; PULSE 87; RESP 18; TEMP 98.9; O2SAT 99
--- NOTE | 2018-01-13 14:47 | PD ---
HPI Chief Complaint: ENT Complaint Time Seen by Provider: 14:23 Travel History International Travel<30 days: No Contact w/Intl Traveler<30days: No Traveled to known affect area: No History of Present Illness HPI Patient comes to the emergency department complaining of scratchy sore throat and left ear pain that began 3 days ago. Patient reports both her children tested positive for strep today and negative for influenza. Patient denies anything making symptoms better. Reports pain is worse with swallowing. Denies any radiation of the pain. Denies fevers, chest pain, shortness of breath, neck pain, headache, nausea, vomiting abdominal pain, or PFSH Past Medical History Hx Anticoagulant Therapy: No Anxiety: Yes Depression: Yes (bipolar) Cardiovascular Problems: Yes ( CHEST PAIN AT TIMES) Chemotherapy: No Cerebrovascular Accident: No Diabetes: No Diminished Hearing: No Hypertension: Yes Musculoskeletal: Yes (CHRONIC BACK PAIN) Psychiatric: Yes (BORDERLINE PERSONALITY DISORDER, PTSD) Respiratory: No Immunizations Current: No Thyroid Disease: Yes Tetanus Vaccination: Unknown Influenza Vaccination: No ?: Not LMP: 12-25-17 : 4 Para: 4 Tubal Ligation: Yes Past Surgical History Section: Yes (X4) Hysterectomy: No Tonsillectomy: Yes (adnoids) Social History Alcohol Use: No Tobacco Use: No Substance Use: Yes (thc) Allergies-Medications (Allergen,Severity, Reaction): Coded Allergies: aripiprazole (Unverified Allergy, Severe, CHEST PAIN, 01/13/18) Pertussis Vaccines (Unverified Allergy, Unknown, CHILD, 01/13/18) Reported Meds & Prescriptions Reported Meds & Active Scripts Active Amoxicillin 875 Mg Tab 875 Mg PO BID 10 Days Reported [Medical Marijuna] 50 Mg INH HS Review of Systems Except as stated in HPI: all other systems reviewed are Neg Physical Exam Narrative GENERAL: Well-developed, overly nourished, in no acute distress, and non-ill appearing. SKIN: Focused skin assessment warm and dry. HEAD: Atraumatic. Normocephalic. EYES: Pupils equal and round. EOMI. No scleral icterus. No injection or drainage. ENT: No nasal bleeding or discharge. Mucous membranes pink and moist. Tympanic membranes pearly singh bilaterally. Posterior pharynx non-erythematous without exudate. Uvula is midline. No tenderness to facial sinuses to palpation. Patient swallowing own saliva and speaking in full sentences without difficulty NECK: Trachea midline. No cervical lymphadenopathy. Supple. No nuclear rigidity. CARDIOVASCULAR: Regular rate and rhythm. No murmur appreciated. RESPIRATORY: No accessory muscle use. No respiratory distress. Clear to auscultation. Breath sounds equal bilaterally. MUSCULOSKELETAL: No obvious deformities. No clubbing. No cyanosis. No edema. Full range of motion. NEUROLOGICAL: Awake and alert. No obvious cranial nerve deficits. Motor grossly within normal limits. Normal speech. PSYCHIATRIC: Appropriate mood and affect; insight and judgment normal. Data Data Last Documented VS Vital Signs Date Time Temp Pulse Resp B/P (MAP) Pulse Ox O2 Delivery O2 Flow Rate FiO2 01/13/18 13:56 98.9 87 18 137/81 (99) 99 Orders Orders Ed Discharge Order (01/13/18 14:48) [facility] Medical Decision Making Medical Screen Exam Complete: Yes Emergency Medical Condition: Yes Differential Diagnosis Strep pharyngitis, viral pharyngitis, URI Narrative Course Patient looks great, non-ill appearing. The patient is tolerating fluids and is well hydrated. Appears pharyngitis possibly Strep. No clinical evidence by history or evaluation to suspect meningitis and/or sepsis. There was no evidence to suggest peritonsillar abscess or retropharyngeal abscess. I discussed with the patient, diagnosis, plan of care and to follow up with the patients primary physician. The patient was given antibiotics. The patient was instructed to return if the worsens in anyway, especially if not tolerating fluids, increased pain or swelling, difficulty swallowing or breathing, or as needed. The patient agreed with plan. Patient in no obvious distress upon re-evaluation. Patient was asked if they wanted to speak to my attending, which the patient did not wish to do at this time. Any questions/concerns in reference to patient diagnosis/condition discussed and clarified prior to patient's discharge. Reinforced sheer importance of close follow up with patient's primary physician or primary care clinic. Instructed patient to return to ED immediately, if symptoms return/ worsen. Patient showed understanding of above instructions. Further instructions and recommendations were detailed in discharge paperwork. Patient ambulated without difficulty out of ED at discharge. Diagnosis Primary Impression: Strep pharyngitis Referrals: [facility] Patient Instructions: General Instructions, Strep Throat (ED) Additional Instructions: Follow-up with your primary care physician in 3-5 days for evaluation. Take all medication as prescribed. Use [id number] Tylenol and ibuprofen for pain and fever control. Follow instructions on the packaging. Drink plenty of non-caffeinated nonalcoholic fluids. Gargle with warm salt water for symptomatic relief. Return to the emergency department if symptoms get worse. Med/Other Pt SpecificInfo: Prescription(s) given Scripts Amoxicillin (Amoxicillin) 875 Mg Tab 875 MG PO BID for Infection for 10 Days, #20 TAB 0 Refills Prov: Jazmyne Ramirez MD 01/13/18 Disposition: 01 DISCHARGE HOME Condition: Stable Kevin Peralta Jan 13, 2018 14:47
[2018-01-13] MEDS ORDERED: AMOX875T PO (14:48)
== END 2018-01-13 15:03 | disposition home or self-care (01) ==
LOC: PHEFT 13:47
DX: J02.0 Streptococcal pharyngitis (principal); H92.02 Otalgia, left ear; I10 Essential (primary) hypertension; E07.9 Disorder of thyroid, unspecified; Z86.59 Personal history of other mental and behavioral disorders; Z87.39 Personal history of other diseases of the musculoskeletal system and connective tissue
CPT/HCPCS: 99283